=== PATIENT | female | born 1965 | race American Indian/Alaskan Native ===

== ENCOUNTER 2016-12-21 12:00 | Inpatient (IN) | payer MEDICARE ==
[2016-12-21 13:50] LABS: Basophils % (Auto) 0.4 % (0.0-1.8); Hematocrit 39.2 % (30.3-42.9); Hemoglobin 12.6 gm/dl (10.1-14.3); Mean Corpuscular HGB Conc 32 % (30-34); Mean Corpuscular Hemoglobin 30 pg (28-32); Mean Corpuscular Volume 94 fl (79-97); Platelet Count 403 K/mm3 (140-440); Red Blood Count 4.17 M/mm3 (3.65-5.03); Red Cell Distribution Width 17.4 % (13.2-15.2); White Blood Count 12.7 K/mm3 (4.5-11.0)
[2016-12-21 14:04] LABS: Albumin 4.2 g/dL (3.9-5); BUN/Creatinine Ratio 7.59; Bilirubin,Total 0.8 mg/dL (0.1-1.2); Calcium 9.5 mg/dL (8.4-10.2); Chloride 92.2 mmol/L (98-107); Potassium 4.1 mmol/L (3.6-5.0); Total Protein 8.4 g/dL (6.3-8.2)
[2016-12-21] MEDS ORDERED: NACL 0.9% 250ML 250 ML IV ONE (20:59)
[2016-12-21] MEDS ORDERED: REGLAN IV ONE (20:59)
[2016-12-21] MEDS ORDERED: ZOFRAN IV ONE (20:59)
[2016-12-21] MEDS ORDERED: DILAUDID IV ONE (20:59)
[2016-12-21] MEDS ORDERED: PEPCID IV ONE (20:59)
[2016-12-21] MEDS ORDERED: BENADRYL IV ONE (20:59)
--- NOTE | 2016-12-21 21:13 | Emergency Department Report ---
ED N/V/D HPI - General Chief complaint: Nausea/Vomiting/Diarrhea Stated complaint: LOW BACK PAIN/BP HIGH Time Seen by Provider: 12/21/16 20:46 Source: patient Mode of arrival: Ambulatory Limitations: No Limitations - History of Present Illness Initial comments: 51 yo female with a past medical history diabetes, hypertension, end-stage renal disease on dialysis and previous cholecystectomy and presents to the hospital complains of abdominal pain nausea, and vomiting 5 days. Patient reports that the symptoms are similar to previous episodes of gastroparesis. She was seen at a [facility] in [facility] on symptoms onset 4 days ago, was treated and released from the ED and had a repeat visit on day 3 and once again was treated in the ER and released. Patient's taken hydrocodone 10 mg, Reglan, Zofran, and Protonix without improvement in symptoms. Patient states she is unable to tolerate any of her oral medication. Pain is in the upper abdomen and lower back, sharp, rated 10/10 intensity, constant, worse with palpation. No alleviating factors. Patient does have urine output denies dysuria. Vomiting has turned into coffee ground emesis. No bowel movement 1 week. Patient moved to the [facility] 4 days ago from [facility]. She recently had her dialysis center change to a local clinic. She was due for dialysis there today (Sunday, , Sunday) but was unable to attend because she was too sick. 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 - Related Data Home Medications Medication Instructions Recorded Confirmed Last Taken Unobtainable 12/21/16 12/21/16 Unknown Allergies Allergy/AdvReac Type Severity Reaction Status Date / Time aspirin Allergy Hives Verified 12/21/16 20:49 ED Review of Systems ROS: Stated complaint: LOW BACK PAIN/BP HIGH Other details as noted in HPI Comment: All other systems reviewed and negative Other: Constitutional: No fevers chills Eyes: No eye pain visual changes ENT: No ear pain or throat pain Neck: Denies pain Respiratory: Denies cough wheezing shortness of breath Cardiovascular: Denies chest pain, palpitations, syncope GI: As per HPI : Denies dysuria Musculoskeletal: As per HPI Skin: Denies rash, lesions, erythema Neurologic: Denies headache, numbness, weakness Psychiatric: Denies suicidal ideation, hallucinations ED Past Medical Hx - Past Medical History Previous Medical History?: Yes Hx Hypertension: Yes Hx Diabetes: Yes Hx Renal Disease: Yes Additional medical history: spinal stenosis, Hemodialysis (Tues, Th, sat) - Surgical History Past Surgical History?: Yes Hx Cholecystectomy: Yes Additional Surgical History: 1990 - Social History Smoking Status: Never Smoker Substance Use Type: Prescribed - Medications Home Medications: Home Medications Medication Instructions Recorded Confirmed Last Taken Type Unobtainable 12/21/16 12/21/16 Unknown History ED Physical Exam - General Limitations: No Limitations - Other Other exam information: General: No limitations, patient is alert in no acute distress Head exam: Atraumatic, normocephalic Eyes exam: Normal appearance ENT: No exudate no exudate Neck exam: Normal inspection, full range of motion, no meningismus nontender Respiratory exam: Clear to auscultation bilateral, no wheezes, rales, crackles Cardiovascular: Normal rate and rhythm, normal heart sounds Abdomen: Soft, nondistended, generalized tenderness, with normal bowel sounds, no rebound, or guarding Extremity: Full range of motion normal inspection no deformity Back: Normal Inspection, full range of motion, lower back tenderness Neurologic: Alert, oriented x3, cranial nerves intact, no motor or sensory deficit Psychiatric: normal affect, normal mood Skin: Warm, dry, intact ED Course Vital Signs 12/21/16 12/21/16 12/21/16 13:04 20:50 21:55 Temperature 98.5 F Pulse Rate 108 H 97 H 93 H Respiratory 24 22 24 Rate Blood Pressure 181/113 Blood Pressure 128/80 127/79 [Right] O2 Sat by Pulse 100 100 99 Oximetry - Reevaluation(s) Reevaluation #1: 12/21/16 22:50 Patient treated with Dilaudid, pepcid, small bolus of normal saline, Reglan, Benadryl, and Zofran with mild improvement in pain and blood pressure. Will admit to the hospital for further treatment patient has repeatedly failed outpatient treatment this week ED Medical Decision Making - Lab Data Result diagrams: 12/21/16 13:25 12/21/16 13:25 Lab Results 12/21/16 12/21/16 12/21/16 Range/Units 13:20 13:25 13:25 WBC 12.7 H (4.5-11.0) K/mm3 RBC 4.17 (3.65-5.03) M/mm3 Hgb 12.6 (10.1-14.3) gm/dl Hct 39.2 (30.3-42.9) % MCV 94 (79-97) fl MCH 30 (28-32) pg MCHC 32 (30-34) % RDW 17.4 H (13.2-15.2) % Plt Count 403 (140-440) K/mm3 Lymph % (Auto) 9.6 L (13.4-35.0) % [place] % (Auto) 4.1 (0.0-7.3) % Eos % (Auto) 0.0 (0.0-4.3) % Baso % (Auto) 0.4 (0.0-1.8) % Lymph # 1.2 (1.2-5.4) K/mm3 [place]y # 0.5 (0.0-0.8) K/mm3 Eos # 0.0 (0.0-0.4) K/mm3 Baso # 0.1 (0.0-0.1) K/mm3 Seg Neutrophils % 85.9 H (40.0-70.0) % Seg Neutrophils # 10.9 H (1.8-7.7) K/mm3 Sodium 138 (137-145) mmol/L Potassium 4.1 (3.6-5.0) mmol/L Chloride 92.2 L (98-107) mmol/L Carbon Dioxide 21 L (22-30) mmol/L Anion Gap 29 mmol/L BUN 41 H (7-17) mg/dL Creatinine 5.4 H (0.7-1.2) mg/dL Estimated GFR 8 ml/min BUN/Creatinine Ratio 7.59 % Glucose 323 H (65-100) mg/dL POC Glucose 319 H (70-105) Calcium 9.5 (8.4-10.2) mg/dL Total Bilirubin 0.80 (0.1-1.2) mg/dL AST 19 (5-40) units/L ALT 8 (7-56) units/L Alkaline Phosphatase 73 (35-129) units/L Total Protein 8.4 H (6.3-8.2) g/dL Albumin 4.2 (3.9-5) g/dL Albumin/Globulin Ratio 1.0 % Lipase 10 L (13-60) units/L Urine Color (Yellow) Urine Turbidity (Clear) Urine pH (5.0-7.0) Ur Specific Dickens (1.003-1.030) Urine Protein (Negative) mg/dL Urine Glucose (UA) (Negative) mg/dL Urine Ketones (Negative) mg/dL Urine Blood (Negative) Urine Nitrite (Negative) Urine Bilirubin (Negative) Urine Urobilinogen (<2.0) mg/dL Ur Leukocyte Esterase (Negative) Urine WBC (Auto) (0.0-6.0) /HPF Urine RBC (Auto) (0.0-6.0) /HPF U Epithel Cells (Auto) (0-13.0) /HPF Urine HCG, Qual (Negative) 12/21/16 12/21/16 Range/Units 21:02 Unknown WBC (4.5-11.0) K/mm3 RBC (3.65-5.03) M/mm3 Hgb (10.1-14.3) gm/dl Hct (30.3-42.9) % MCV (79-97) fl MCH (28-32) pg MCHC (30-34) % RDW (13.2-15.2) % Plt Count (140-440) K/mm3 Lymph % (Auto) (13.4-35.0) % Ripley % (Auto) (0.0-7.3) % Eos % (Auto) (0.0-4.3) % Baso % (Auto) (0.0-1.8) % Lymph # (1.2-5.4) K/mm3 Ripley # (0.0-0.8) K/mm3 Eos # (0.0-0.4) K/mm3 Baso # (0.0-0.1) K/mm3 Seg Neutrophils % (40.0-70.0) % Seg Neutrophils # (1.8-7.7) K/mm3 Sodium (137-145) mmol/L Potassium (3.6-5.0) mmol/L Chloride (98-107) mmol/L Carbon Dioxide (22-30) mmol/L Anion Gap mmol/L BUN (7-17) mg/dL Creatinine (0.7-1.2) mg/dL Estimated GFR ml/min BUN/Creatinine Ratio % Glucose (65-100) mg/dL POC Glucose (70-105) Calcium (8.4-10.2) mg/dL Total Bilirubin (0.1-1.2) mg/dL AST (5-40) units/L ALT (7-56) units/L Alkaline Phosphatase (35-129) units/L Total Protein (6.3-8.2) g/dL Albumin (3.9-5) g/dL Albumin/Globulin Ratio % Lipase (13-60) units/L Urine Color Yellow (Yellow) Urine Turbidity Clear (Clear) Urine pH 6.0 (5.0-7.0) Ur Specific Dick[place] 1.010 (1.003-1.030) Urine Protein 100 mg/dl (Negative) mg/dL Urine Glucose (UA) >=500 (Negative) mg/dL Urine Ketones 20 (Negative) mg/dL Urine Blood Sm (Negative) Urine Nitrite Neg (Negative) Urine Bilirubin Neg (Negative) Urine Urobilinogen < 2.0 (<2.0) mg/dL Ur Leukocyte Esterase Neg (Negative) Urine WBC (Auto) 1.0 (0.0-6.0) /HPF Urine RBC (Auto) 6.0 (0.0-6.0) /HPF U Epithel Cells (Auto) 2.0 (0-13.0) /HPF Urine HCG, Qual Negative (Negative) - Radiology Data Radiology results: report reviewed CT abdomen and pelvis without contrast: No Acute Findings. Appendix normal. Moderate fecal debris thorough out colon May represent constipation. - Medical Decision Making Given patient's repeated failure of outpatient treatment will admit to the hospital overnight for further stabilization and further symptoms. Blood pressure improved with pain and nausea management. Patient is also due for dialysis and does not know the name of her special service representative. - Differential Diagnosis gastroparesis, gastroenteritis, [place], chronic pain, obstruction Critical Care Time: No Critical care attestation.: If time is entered above; I have spent that time in minutes in the direct care of this critically ill patient, excluding procedure time. ED Disposition Clinical Impression: Gastroparesis, ESRD (end stage renal disease) on dialysis, HTN (hypertension), Diabetes Disposition: OP ADMIT IP TO THIS HOSP Is pt being admited?: Yes Condition: Stable Time of Disposition: 22:53 (DR dunbar/hosp)
[2016-12-21 21:23] LABS: Bilirubin,Urine NEG (Negative); Blood,Urine SM (Negative); Ketones,Urine 20 mg/dL (Negative); Leukocyte Esterase,Urine NEG (Negative); Nitrite,Urine NEG (Negative); Urobilinogen,Urine < 2.0 mg/dL (<2.0)
--- NOTE | 2016-12-21 22:22 | Cat Scan Report ---
FINAL REPORT PROCEDURE: CT ABDOMEN PELVIS WO CON TECHNIQUE: Computerized axial tomography of the abdomen and pelvis was performed without intravenous contrast. This study is performed without intravascular contrast material and its sensitivity for abdominal and pelvic pathology, including neoplasms, inflammation, abscess, free fluid, thrombosis, arterial dissection and infarction, is reduced compared with a contrast enhanced study. HISTORY: abd pain, n,v hx of gastroparesis, esrd COMPARISON: No prior studies are available for comparison. FINDINGS: Visualized lower thorax: No significant abnormality. Liver: Normal size and attenuation. Spleen: Normal size and attenuation. Gallbladder and biliary system: The gallbladder is difficult to evaluate on this study. The gallbladder may be contracted. No dilatation of the biliary ductal system.. Pancreas: Normal. Adrenals: Normal. Kidneys: Normal. GI tract: No obstruction. No ileus or enteritis. The cecum, appendix and colon are normal. Moderate fecal debris throughout the colon including the rectum.. Lymph nodes and mesentery: Normal. Vasculature: Moderate atherosclerosis of the aorta and all branching vessels.. Bladder: Normal. Reproductive organs: The uterus is absent. No pelvic masses.. Peritoneum: No free fluid. Musculoskeletal structures: No significant abnormality. Other: None. IMPRESSION: There is no evidence of intestinal or urinary tract obstruction. No ileus or enteritis. The appendix is normal. Moderate fecal debris throughout the colon may represent constipation..
--- NOTE | 2016-12-21 23:47 | History and Physical Report ---
History of Present Illness Date of examination: 12/21/16 History of present illness: 51-year-old man with a history of end-stage renal disease on dialysis Sunday, , Sunday, diabetes, hypertension comes emergency room with complaints of multiple episodes of nausea vomiting, unable to tolerate oral intake 1 week. Patient states that she went to dialysis today and was unable to get dialyzed because of her persistent nausea vomiting. She was seen at [facility] for the nausea vomiting secondary to gastroparesis but was not admitted. Complaining of abdominal pain in the epigastric area, sharp, intermittent in nature, unable to say how long it lasts for, radiating around to the back, cannot identify exacerbating or relieving factors. Review Of Systems: Constitutional: no fever, chills, weight loss Ears, eyes, nose, mouth and throat: no nasal congestion, no nasal discharge, no sinus pressure, blurry vision, diplopia Neck: No neck pain or rigidity. Cardiovascular: chest pain, orthopnea, palpitations Respiratory: No shortness of breath, cough Gastrointestinal: hematochezia Genitourinary : no dysuria, frequency , hematuria Musculoskeletal: no joint swelling or muscle ache Integumentary: no rash, no pruritis Neurological: no parathesias, focal weakness Endocrine: no cold or heat intolerance, no polyuria or polydipsia Hematologic/Lymphatic: no easy bruising, no easy bleeding, no gland swelling Allergic/Immunologic: no urticaria, no angioedema. PAST MEDICAL HISTORY:end-stage renal disease on dialysis Sunday, , Sunday, diabetes, hypertension PAST SURGICAL HISTORY: AV fistula, cholecystectomy, FAMILY HISTORY: hypertension SOCIAL HISTORY: Denies alcohol, tobacco, drugs Medications and Allergies Allergies Allergy/AdvReac Type Severity Reaction Status Date / Time aspirin Allergy Hives Verified 12/21/16 20:49 Home Medications Medication Instructions Recorded Confirmed Last Taken Type Apixaban [Eliquis] 2.5 mg PO BID 12/22/16 12/22/16 12/20/16 History Clopidogrel Bisulfate [Plavix] 75 mg PO DAILY 12/22/16 12/22/16 1 Day Ago History Duloxetine HCl [Cymbalta] 30 mg PO DAILY 12/22/16 12/22/16 12/20/16 History Escitalopram [Lexapro] 10 mg PO DAILY 08/12/22/16 12/20/16 History Folic Acid/Multivit-Min/Lutein 1 tab PO QDAY 12/22/16 12/22/16 12/20/16 History [Therapeutic-M] Glimepiride [Amaryl] 4 mg PO BID 12/22/16 12/22/16 12/20/16 History HYDROcodone/APAP 10-325 [[place] 1 each PO Q6HR PRN 12/22/16 12/22/16 Unknown History 10/325] Linagliptin [Tradjenta] 10 mg PO DAILY 12/22/16 12/22/16 12/20/16 History Pantoprazole [Protonix TAB] 20 mg QDAY 12/22/16 12/22/16 12/20/16 History Promethazine [Phenergan TAB] 25 mg PO Q6HR PRN 12/22/16 12/22/16 1 Day Ago History Ropinirole HCl [rOPINIRole] 10 mg PO DAILY 12/22/16 12/22/16 12/20/16 History cloNIDine [Catapres] 0.2 mg PO BID 12/22/16 12/22/16 1 Day Ago History hydrALAZINE [Apresoline TAB] 100 mg PO TID 12/22/16 12/22/16 1 Day Ago History Exam - Constitutional Vitals: Temp Pulse Resp BP Pulse Ox 98.5 F 93 H 24 127/79 99 12/21/16 13:04 12/21/16 21:55 12/21/16 21:55 12/21/16 21:55 12/21/16 21:55 Results - Labs CBC & Chem 7: 12/21/16 13:25 12/21/16 13:25 Labs: Abnormal lab results 12/21/16 12/21/16 12/21/16 Range/Units 13:20 13:25 13:25 WBC 12.7 H (4.5-11.0) K/mm3 RDW 17.4 H (13.2-15.2) % Lymph % (Auto) 9.6 L (13.4-35.0) % Seg Neutrophils % 85.9 H (40.0-70.0) % Seg Neutrophils # 10.9 H (1.8-7.7) K/mm3 Chloride 92.2 L (98-107) mmol/L Carbon Dioxide 21 L (22-30) mmol/L BUN 41 H (7-17) mg/dL Creatinine 5.4 H (0.7-1.2) mg/dL Glucose 323 H (65-100) mg/dL POC Glucose 319 H (70-105) Total Protein 8.4 H (6.3-8.2) g/dL Lipase 10 L (13-60) units/L Assessment and Plan Assessment Acute on chronic gastroparesis End-stage renal disease needing dialysis Hypertension Diabetes Plan Start antibiotics, consult renal Check fingersticks and initiate insulin sliding scale Continue appropriate outpatient medications comes to drift prophylaxis
[2016-12-22] MEDS ORDERED: REGLAN IV PRN ×2 (00:07→00:27)
[2016-12-22] MEDS ORDERED: TYLENOL PO PRN (00:07)
[2016-12-22] MEDS ORDERED: DULCOLAX PR PRN (00:07)
[2016-12-22] MEDS: MORPHINE IV PRN ×3 (01:03→17:50)
[2016-12-22] MEDS: ZOFRAN IV PRN ×4 (01:04→21:55)
[2016-12-22 01:34] LABS: Creatine Kinase MB 1.6 ng/mL (0.0-4.0)
[2016-12-22 01:35] LABS: Creatine Kinase 113 units/L (30-135)
[2016-12-22 07:27] LABS: Creatine Kinase MB 1.5 ng/mL (0.0-4.0)
[2016-12-22 07:28] LABS: Creatine Kinase 83 units/L (30-135)
[2016-12-22] MEDS ORDERED: APRESOLINE IV ONE (09:00)
--- NOTE | 2016-12-22 09:39 | Consultation ---
History of Present Illness - Reason for Consult Consult date: 12/22/16 end stage renal disease Medications and Allergies Allergies Allergy/AdvReac Type Severity Reaction Status Date / Time aspirin Allergy Hives Verified 12/21/16 20:49 Home Medications Medication Instructions Recorded Confirmed Last Taken Type Apixaban [Eliquis] 2.5 mg PO BID 12/22/16 12/22/16 12/20/16 History Clopidogrel Bisulfate [Plavix] 75 mg PO DAILY 12/22/16 12/22/16 1 Day Ago History Duloxetine HCl [Cymbalta] 30 mg PO DAILY 12/22/16 12/22/16 12/20/16 History Escitalopram [Lexapro] 10 mg PO DAILY 12/22/16 12/22/16 12/20/16 History Folic Acid/Multivit-Min/Lutein 1 tab PO QDAY 12/22/16 12/22/16 12/20/16 History [Therapeutic-M] Glimepiride [Amaryl] 4 mg PO BID 12/22/16 12/22/16 12/20/16 History HYDROcodone/APAP 10-325 [[place] 1 each PO Q6HR PRN 12/22/16 12/22/16 Unknown History 10/325] Linagliptin [Tradjenta] 10 mg PO DAILY 12/22/16 12/22/16 12/20/16 History Pantoprazole [Protonix TAB] 20 mg QDAY 12/22/16 12/22/16 12/20/16 History Promethazine [Phenergan TAB] 25 mg PO Q6HR PRN 12/22/16 12/22/16 1 Day Ago History Ropinirole HCl [rOPINIRole] 10 mg PO DAILY 12/22/16 12/22/16 12/20/16 History cloNIDine [Catapres] 0.2 mg PO BID 12/22/16 12/22/16 1 Day Ago History hydrALAZINE [Apresoline TAB] 100 mg PO TID 12/22/16 12/22/16 1 Day Ago History Active Meds: Active Medications Acetaminophen (Tylenol) 650 mg PO Q4H PRN PRN Reason: Pain MILD(1-3)/Fever >100.5/SHERMAN Acetaminophen/Hydrocodone Bitart ([place] 10/325) 1 each PO Q6HR PRN PRN Reason: Pain Bisacodyl (Dulcolax) 10 mg UT QDAY PRN PRN Reason: Constipation unrelieved by MOM Clonidine HCl (Catapres) 0.2 mg PO BID [facility] Clopidogrel Bisulfate (Plavix) 75 mg PO DAILY SHARI Duloxetine HCl (Cymbalta) 30 mg PO DAILY [facility] Enoxaparin Sodium (Lovenox) 30 mg SUB-Q QDAY [facility] Escitalopram Oxalate (Lexapro) 10 mg PO DAILY SHARI Famotidine (Pepcid) 20 mg IV DAILY SH[facility]I Glimepiride (Amaryl) 4 mg PO BIDDIAB [facility] Hydralazine HCl (Apresoline) 100 mg PO TID SHARI Linagliptin (Tradjenta) 10 mg PO DAILY [facility] Metoclopramide HCl (Reglan) 5 mg IV Q6H PRN PRN Reason: Nausea And Vomiting Miscellaneous Medication (Ropinirole Hcl [Ropinirole]) 10 mg PO DAILY [facility] Morphine Sulfate (Morphine) 2 mg IV Q4H PRN PRN Reason: Pain, Moderate (4-6) Last Admin: 12/22/16 07:54 Dose: 2 mg Ondansetron HCl (Zofran) 4 mg IV Q4H PRN PRN Reason: N/V unrelieved by Reglan Last Admin: 12/22/16 07:54 Dose: 4 mg Promethazine HCl (Phenergan) 25 mg PO Q6HR PRN PRN Reason: Nausea Exam - Vital Signs Vital signs: Vital Signs Temp Pulse Resp BP Pulse Ox 98.5 F 108 H 24 181/113 100 12/21/16 13:04 12/21/16 13:04 12/21/16 13:04 12/21/16 13:04 12/21/16 13:04 Results - Lab Results 12/21/16 13:25 12/21/16 13:25 Most recent lab results Calcium 9.5 mg/dL (8.4-10.2) 12/21/16 13:25
[2016-12-22] MEDS ORDERED: ROPINIROLE HCL 10 MG PO SCH (10:00)
[2016-12-22] MEDS: AMARYL PO SCH ×2 (10:00→17:48)
[2016-12-22] MEDS ORDERED: PEPCID IV SCH (10:00)
[2016-12-22] MEDS ORDERED: LOVENOX SUB-Q SCH (10:00)
[2016-12-22] MEDS: PEPCID IV SCH (10:29)
[2016-12-22] MEDS: CATAPRES PO SCH ×2 (10:30→21:55)
[2016-12-22] MEDS ORDERED: NACL 0.9% 100 ML IV PRN (11:00)
[2016-12-22] MEDS ORDERED: PHENERGAN PO PRN (11:00)
[2016-12-22] MEDS ORDERED: NORCO 10/325 PO PRN (11:30)
[2016-12-22] MEDS: TRADJENTA PO SCH (11:52)
[2016-12-22] MEDS: CYMBALTA PO SCH (11:52)
[2016-12-22] MEDS: LEXAPRO PO SCH (11:52)
[2016-12-22] MEDS: PLAVIX PO SCH ×2 (11:53→17:49)
--- NOTE | 2016-12-22 13:46 | Progress Note ---
Assessment and Plan Assessment and plan: Abdominal pain, nausea and vomiting secondary to gastroparesis - Patient is on Reglan, pantoprazole - Patient shows evaluated by gastroenterology before End Stage Renal disease on hemodialysis - Patient recently moved from [facility] - she was scheduled to go to [facility] yesterday but she got sick and she was sent to the hospital - Nephrology was consulted and dialysis was ordered today DM2 with hyperglycemia -Continue home medication Hypertension - continue home medication DVT prophylaxis -Heparin Disposition - possible D/C tomorrow History Interval history: Patient was seen and evaluated this morning, she is still c/o abdominal pain but getting better. Hospitalist Physical - Physical exam Narrative exam: Not in cardiopulmonary distress. The patient appeared well nourished and normally developed. Vital signs as documented. Head exam is unremarkable. No scleral icterus . Neck is without jugular venous distension, thyromegaly, or carotid bruits. Lungs are clear to auscultation. Cardiac exam reveals regular rate and Rhythm. First and second heart sounds normal. No murmurs, rubs or gallops. Abdominal exam reveals abdominal tenderness but no rebound or guarding. Extremities are nonedematous and both femoral and pedal pulses are normal. [employer] AL[employer]ER: Alert and oriented 3. No focal weakness. - Constitutional Vitals: Temp Pulse Resp BP Pulse Ox 98.1 F 90 20 95/52 96 12/22/16 11:55 12/22/16 11:55 12/22/16 11:55 12/22/16 11:55 12/22/16 11:55 Results - Labs CBC & Chem 7: 12/21/16 13:25 12/21/16 13:25 Labs: Laboratory Last Values WBC 12.7 K/mm3 (4.5-11.0) H 12/21/16 13:25 RBC 4.17 M/mm3 (3.65-5.03) 12/21/16 13:25 Hgb 12.6 gm/dl (10.1-14.3) 12/21/16 13:25 Hct 39.2 % (30.3-42.9) 12/21/16 13:25 MCV 94 fl (79-97) 12/21/16 13:25 MCH 30 pg (28-32) 12/21/16 13:25 MCHC 32 % (30-34) 12/21/16 13:25 RDW 17.4 % (13.2-15.2) H 12/21/16 13:25 Plt Count 403 K/mm3 (140-440) 12/21/16 13:25 Lymph % (Auto) 9.6 % (13.4-35.0) L 12/21/16 13:25 Avery % (Auto) 4.1 % (0.0-7.3) 12/21/16 13:25 Eos % (Auto) 0.0 % (0.0-4.3) 12/21/16 13:25 Baso % (Auto) 0.4 % (0.0-1.8) 12/21/16 13:25 Lymph # 1.2 K/mm3 (1.2-5.4) 12/21/16 13:25 Avery # 0.5 K/mm3 (0.0-0.8) 12/21/16 13:25 Eos # 0.0 K/mm3 (0.0-0.4) 12/21/16 13:25 Baso # 0.1 K/mm3 (0.0-0.1) 12/21/16 13:25 Seg Neutrophils % 85.9 % (40.0-70.0) H 12/21/16 13:25 Seg Neutrophils # 10.9 K/mm3 (1.8-7.7) H 12/21/16 13:25 Sodium 138 mmol/L (137-145) 12/21/16 13:25 Potassium 4.1 mmol/L (3.6-5.0) 12/21/16 13:25 Chloride 92.2 mmol/L (98-107) L 12/21/16 13:25 Carbon Dioxide 21 mmol/L (22-30) L 12/21/16 13:25 Anion Gap 29 mmol/L 12/21/16 13:25 BUN 41 mg/dL (7-17) H 12/21/16 13:25 Creatinine 5.4 mg/dL (0.7-1.2) H 12/21/16 13:25 Estimated GFR 8 ml/min 12/21/16 13:25 BUN/Creatinine Ratio 7.59 % 12/21/16 13:25 Glucose 323 mg/dL (65-100) H 12/21/16 13:25 POC Glucose 197 (70-105) H 12/21/16 21:41 Calcium 9.5 mg/dL (8.4-10.2) 12/21/16 13:25 Total Bilirubin 0.80 mg/dL (0.1-1.2) 12/21/16 13:25 AST 19 units/L (5-40) 12/21/16 13:25 ALT 8 units/L (7-56) 12/21/16 13:25 Alkaline Phosphatase 73 units/L (35-129) 12/21/16 13:25 Total Creatine Kinase 83 units/L (30-135) 12/22/16 06:47 CK-MB (CK-2) 1.5 ng/mL (0.0-4.0) 12/22/16 06:47 CK-MB (CK-2) Rel Index 1.8 (0-4) 12/22/16 06:47 Troponin T < 0.010 ng/mL (0.00-0.029) 12/22/16 06:47 Total Protein 8.4 g/dL (6.3-8.2) H 12/21/16 13:25 Albumin 4.2 g/dL (3.9-5) 12/21/16 13:25 Albumin/Globulin Ratio 1.0 % 12/21/16 13:25 Lipase 10 units/L (13-60) L 12/21/16 13:25 Urine Color Yellow (Yellow) 12/21/16 Unknown Urine Turbidity Clear (Clear) 12/21/16 Unknown Urine pH 6.0 (5.0-7.0) 12/21/16 Unknown Ur Specific [place] 1.010 (1.003-1.030) 12/21/16 Unknown Urine Protein 100 mg/dl mg/dL (Negative) 12/21/16 Unknown Urine Glucose (UA) >=500 mg/dL (Negative) 12/21/16 Unknown Urine Ketones 20 mg/dL (Negative) 12/21/16 Unknown Urine Blood Sm (Negative) 12/21/16 Unknown Urine Nitrite Neg (Negative) 12/21/16 Unknown Urine Bilirubin Neg (Negative) 12/21/16 Unknown Urine Urobilinogen < 2.0 mg/dL (<2.0) 12/21/16 Unknown Ur Leukocyte Esterase Neg (Negative) 12/21/16 Unknown Urine WBC (Auto) 1.0 /HPF (0.0-6.0) 12/21/16 Unknown Urine RBC (Auto) 6.0 /HPF (0.0-6.0) 12/21/16 Unknown U Epithel Cells (Auto) 2.0 /HPF (0-13.0) 12/21/16 Unknown Urine HCG, Qual Negative (Negative) 12/21/16 21:02
[2016-12-22] MEDS: APRESOLINE PO SCH ×2 (14:24→21:55)
[2016-12-22] MEDS: PROTONIX PO SCH (14:25)
[2016-12-22] MEDS ORDERED: HEPARIN IV PRN (14:52)
[2016-12-22] MEDS ORDERED: NACL 0.9 (PRIMING MACHINE ONLY DIALYSIS) MC ONE (15:10)
[2016-12-22] MEDS ORDERED: HEPARIN 10,000 UNITS/10 ML ONE (15:11)
--- NOTE | 2016-12-22 17:51 | Consultation ---
History of Present Illness - History of Present Illness Thank you for the consultation Patient is currently being followed by our group at [facility] Patient was evaluated at 1:30 in the afternoon was also seen and supervised on hemodialysis Assessment and plan End-stage renal disease patient is currently on maintenance hemodialysis on Sunday and Sunday schedule Patient likely will require 2 hours of additional treatment tomorrow She does currently have a functioning fistula in the right arm but in my opinion does not appears to be fully matured Current dialysis access still appears to be a central venous catheter in her right upper chest which has been working well Anemia and end-stage renal disease to monitor and follow Secondary hyperparathyroidism and monitor phosphorus and PTH level End-stage renal disease related to dietary counseling and education with the lifestyle changes were discussed with patient Currently being treated for gastroparesis flare which she does get off and on, patient needs to follow gastroparesis diet We'll continue to follow and make recommendation from renal standpoint History of presenting illness: Patient is a pleasant 51-year-old -[place] female who is currently started dialysis at [facility] under our group. Patient has had a flareup nausea vomiting and gastroparesis which she occasionally does and has presented to the hospital for dialysis need. Patient was seen by another pattern setter by mistake. I was consulted for management of end-stage renal disease. Patient currently does have a working access in her right arm which has been cannulated a few time with success. She currently does not have any complaints of nausea vomiting, which is improving. No complaints of any fevers chills patient already takes off about 2 L of fluid during dialysis. Patient wants to go back to [facility] under our care for her dialysis and she has no plans to change her pattern setter Past medical history is significant for: End-stage renal disease currently in maintenance of her dialysis Anemia and end-stage renal disease Secondary hyperparathyroidism Gastroparesis Current allergies: Aspirin Home medication present medications: Reviewed Social history: Denies any history of alcohol drug or tobacco abuse Family history: Noncontributory for renal lipid disorder Review of system positive for flareup of diabetic gastroparesis nausea vomiting which is currently much better Other review of systems were negative Physical examination Vitals: Reviewed from this admission General: No acute distress HEENT: Oral mucosa moist no uremic order mild pallor no icterus Neck: No thyromegaly nodular mass or JVD noted Chest: Clear to auscultation no rales or wheezes Heart: Regular rhythm S1-S2 heard no S3-S4 Abdomen: Nontender no organomegaly no masses no renal bruit no suprapubic masses noted Extremities: Mild edema No peripheral cyanosis dry skin pulses palpable, has a working fistula in her right upper arm Endocrine: No thyromegaly noted Psych; no agitation or aggression noted Back: Nontender thoracolumbar spine Musculoskeletal: No joint effusion noted Neurological: Alert awake follows commands higher function including speech memory thought cognition within normal limits Labs and x-rays: All were reviewed from this admission on chart today Medications and Allergies Allergies Allergy/AdvReac Type Severity Reaction Status Date / Time aspirin Allergy Hives Verified 12/21/16 20:49 Home Medications Medication Instructions Recorded Confirmed Last Taken Type Apixaban [Eliquis] 2.5 mg PO BID 12/22/16 12/22/16 12/20/16 History Clopidogrel Bisulfate [Plavix] 75 mg PO DAILY 12/22/16 12/22/16 1 Day Ago History Duloxetine HCl [Cymbalta] 30 mg PO DAILY 12/22/16 12/22/16 12/20/16 History Escitalopram [Lexapro] 10 mg PO DAILY 12/22/16 12/22/16 12/20/16 History Folic Acid/Multivit-Min/Lutein 1 tab PO QDAY 12/22/16 12/22/16 12/20/16 History [Therapeutic-M] Glimepiride [Amaryl] 4 mg PO BID 12/22/16 12/22/16 12/20/16 History HYDROcodone/APAP 10-325 [[place] 1 each PO Q6HR PRN 12/22/16 12/22/16 Unknown History 10-325 mg TAB] Linagliptin [Tradjenta] 10 mg PO DAILY 12/22/16 12/22/16 12/20/16 History Pantoprazole [Protonix TAB] 20 mg QDAY 12/22/16 12/22/16 12/20/16 History Promethazine [Phenergan TAB] 25 mg PO Q6HR PRN 12/22/16 12/22/16 1 Day Ago History Ropinirole HCl [rOPINIRole] 10 mg PO DAILY 12/22/16 12/22/16 12/20/16 History cloNIDine [Catapres] 0.2 mg PO BID 12/22/16 12/22/16 1 Day Ago History hydrALAZINE [Apresoline TAB] 100 mg PO TID 12/22/16 12/22/16 1 Day Ago History Metoclopramide HCl [Reglan TAB] 5 mg PO Q6H PRN #30 tablet 12/23/16 Unknown Rx Active Meds: Active Medications Acetaminophen (Tylenol) 650 mg PO Q4H PRN PRN Reason: Pain MILD(1-3)/Fever >100.5/SHERMAN Acetaminophen/Hydrocodone Bitart ([place] 10/325) 1 each PO Q6H PRN PRN Reason: Pain Bisacodyl (Dulcolax) 10 mg [place] QDAY PRN PRN Reason: Constipation unrelieved by MOM Clonidine HCl (Catapres) 0.2 mg PO BID [facility] Last Admin: 12/22/16 10:30 Dose: 0.2 mg Clopidogrel Bisulfate (Plavix) 75 mg PO DAILY [facility] Last Admin: 12/22/16 17:49 Dose: 75 mg Duloxetine HCl (Cymbalta) 30 mg PO DAILY [facility] Last Admin: 12/22/16 11:52 Dose: Not Given Escitalopram Oxalate (Lexapro) 10 mg PO DAILY [facility] Last Admin: 12/22/16 11:52 Dose: Not Given Famotidine (Pepcid) 20 mg IV DAILY [facility] Last Admin: 12/22/16 10:29 Dose: 20 mg Glimepiride (Amaryl) 4 mg PO BIDDIAB [facility] Last Admin: 12/22/16 17:48 Dose: 4 mg Heparin Sodium (Porcine) (Heparin) 5,000 unit SUB-Q Q8HR [facility] Heparin Sodium (Porcine) (Heparin) 5,000 unit IV [place]LEY PRN PRN Reason: LINE FLUSH Hydralazine HCl (Apresoline) 100 mg PO TID [facility] Last Admin: 12/22/16 14:24 Dose: Not Given Sodium Chloride (Nacl 0.9%) 100 mls @ 999 mls/hr IV PRESLEY PRN PRN Reason: Hypotension Linagliptin (Tradjenta) 10 mg PO QDDIAB [facility] Last Admin: 12/22/16 11:52 Dose: Not Given Metoclopramide HCl (Reglan) 5 mg IV Q6H PRN PRN Reason: Nausea And Vomiting Morphine Sulfate (Morphine) 2 mg IV Q4H PRN PRN Reason: Pain, Moderate (4-6) Last Admin: 12/22/16 07:54 Dose: 2 mg Ondansetron HCl (Zofran) 4 mg IV Q4H PRN PRN Reason: N/V unrelieved by Ariana Last Admin: 12/22/16 15:35 Dose: 4 mg Pantoprazole Sodium (Protonix) 20 mg PO QDAY [facility] Last Admin: 12/22/16 14:25 Dose: Not Given Promethazine HCl (Phenergan) 25 mg PO Q6H PRN PRN Reason: Nausea Ropinirole HCl (Requip) 2.5 mg PO QHS [facility] Exam - Vital Signs Vital signs: Vital Signs Temp Pulse Resp BP Pulse Ox 98.5 F 108 H 24 181/113 100 12/21/16 13:04 12/21/16 13:04 12/21/16 13:04 12/21/16 13:04 12/21/16 13:04 Results - Lab Results 12/23/16 06:15 12/21/16 13:25 Most recent lab results Calcium 9.5 mg/dL (8.4-10.2) 12/21/16 13:25
[2016-12-22] MEDS: HEPARIN SUB-Q SCH (21:56)
[2016-12-22] MEDS ORDERED: REQUIP PO SCH (22:00)
[2016-12-23] MEDS: MORPHINE IV PRN ×2 (00:37→06:47)
[2016-12-23 06:34] LABS: Basophils % (Auto) 0.9 % (0.0-1.8); Eosinophils % (Auto) 2.3 % (0.0-4.3); Hematocrit 31.6 % (30.3-42.9); Hemoglobin 10.4 gm/dl (10.1-14.3); Mean Corpuscular HGB Conc 33 % (30-34); Mean Corpuscular Hemoglobin 31 pg (28-32); Mean Corpuscular Volume 94 fl (79-97); Platelet Count 303 K/mm3 (140-440); Red Blood Count 3.35 M/mm3 (3.65-5.03); Red Cell Distribution Width 16.7 % (13.2-15.2); White Blood Count 7.9 K/mm3 (4.5-11.0)
[2016-12-23] MEDS: ZOFRAN IV PRN (06:47)
[2016-12-23] MEDS: HEPARIN SUB-Q SCH ×2 (06:47→14:23)
[2016-12-23] MEDS ORDERED: NACL 0.9% 100 ML IV PRN (08:31)
[2016-12-23] MEDS: APRESOLINE PO SCH ×3 (08:52→14:03)
[2016-12-23] MEDS: AMARYL PO SCH (08:52)
[2016-12-23] MEDS: TRADJENTA PO SCH (08:53)
[2016-12-23] MEDS: CYMBALTA PO SCH (09:00)
[2016-12-23] MEDS: PROTONIX PO SCH (09:00)
[2016-12-23] MEDS: PEPCID IV SCH (09:00)
[2016-12-23] MEDS: LEXAPRO PO SCH (09:00)
[2016-12-23] MEDS: PLAVIX PO SCH (09:00)
[2016-12-23] MEDS: CATAPRES PO SCH (09:03)
--- NOTE | 2016-12-23 10:19 | Discharge Summary ---
Providers - Providers Date of Admission: 12/21/16 23:47 Date of discharge: 12/23/16 Attending physician: KEYA WEST MD 12/22/16 09:27 Consult to Physician [CONS] Routine Consulting Provider: MIO TREVIZO Reason For Exam: ESRD on HD Place consult to:: Dr. Trevizo Notified:: Francisca FLORES Phone number called:: Was contact made?: Yes If yes, spoke with:: Leandra-Office Time called:: 09:32 Primary care physician: ANITA REYNOSO MD Hospitalization Reason for admission: end-stage renal disease on hemodialysis, gastroparesis Condition: Stable Hospital course: Admission H/P 51-year-old man with a history of end-stage renal disease on dialysis Sunday, , Sunday, diabetes, hypertension comes emergency room with complaints of multiple episodes of nausea vomiting, unable to tolerate oral intake 1 week. Patient states that she went to dialysis today and was unable to get dialyzed because of her persistent nausea vomiting. She was seen at [facility] for the nausea vomiting secondary to gastroparesis but was not admitted. Complaining of abdominal pain in the epigastric area, sharp, intermittent in nature, unable to say how long it lasts for, radiating around to the back, cannot identify exacerbating or relieving factors. Patient was admitted to the floor and nephrology consulted and resumed her hemodialysis. Gastroparesis was managed symptomatically and getting better. patient was scheduled to continue her HD at [facility] [place] and was discharged home in a stable condition. Patients medications were reviewed and updated at the time of discharge. Disposition: - TO HOME OR SELFCARE Time spent for discharge: 31 minutes - Discharge Diagnoses (1) Diabetes Status: Acute Qualifiers: Diabetes mellitus type: D Diabetes mellitus complication status: D Diabetes mellitus complication detail: D Diabetic retinopathy severity: D Proliferative retinopathy type: P Diabetes mellitus macular edema: D Diabetes mellitus intermediate insulin use: D Laterality: L Chronic kidney disease stage: C (2) ESRD (end stage renal disease) on dialysis Status: Acute (3) Gastroparesis Status: Acute (4) HTN (hypertension) Status: Acute Qualifiers: Hypertension type: H Core Measure Documentation - Palliative Care Palliative Care/ Comfort Measures: Not Applicable - Core Measures Any of the following diagnoses?: none Exam - Physical Exam Narrative exam: Not in cardiopulmonary distress. The patient appeared well nourished and normally developed. Vital signs as documented. Head exam is unremarkable. No scleral icterus . Neck is without jugular venous distension, thyromegaly, or carotid bruits. Lungs are clear to auscultation. Cardiac exam reveals regular rate and Rhythm. First and second heart sounds normal. No murmurs, rubs or gallops. Abdominal exam reveals no abdominal tenderness, guarding or rigidity. Extremities are nonedematous and both femoral and pedal pulses are normal. 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 No focal weakness. - Constitutional Vitals: Temp Pulse Resp BP Pulse Ox 98.2 F 81 81 H 123/69 98 12/23/16 08:34 12/23/16 08:34 12/23/16 08:34 12/23/16 08:34 12/23/16 08:34 Plan Activity: no restrictions Weight Bearing Status: Full Weight Bearing Diet: low cholesterol, low salt, diabetic, renal Follow up with: ANITA REYNOSO MD [Primary Care Provider] - 7 Days Prescriptions: Metoclopramide HCl [Reglan TAB] 5 mg PO Q6H PRN #30 tablet PRN Reason: Pain
[2016-12-23] MEDS ORDERED: NACL 0.9 (PRIMING MACHINE ONLY DIALYSIS) MC ONE ×2 (11:24→12:27)
--- NOTE | 2016-12-23 11:30 | Progress Note ---
Subjective Interval history: Patient was seen today for follow-up overall she's feeling much better dialysis was well tolerated yesterday Patient currently does have a fistula in her right arm which has not fully matured She was also seen in supervised on hemodialysis tolerating well no compressive any nausea vomiting Occasionally does get flareup of gastroparesis Vitals labs intake output medications were reviewed HEENT: Oral mucosa moist no uremic order Neck: Supple no JVD Chest: Clear to auscultation Heart: Regular rate and rhythm S1-S2 heard Abdomen: Soft nontender Extremity: Good functioning fistula in the right arm has good thrill and bruit but not fully matured Neurological: Alert awake oriented 4 Assessment and plan End-stage renal disease patient is tolerating hemodialysis treatment well currently her normal days are Sunday she is receiving a short treatment today I did come to see in supervised on hemodialysis as well Did educate her length about rule out diet and lifestyle changes she should eat fresh and fresh frozen possibly avoid processed food in general Hypertension goal systolic blood pressure of under 150 was discussed with patient to monitor follow and take medications Educated about fistula care exercises to matured fistula which can be shortly use I believe in next 2-3 weeks depending on how thoroughly matures Gastroparesis flare patient was advised to follow gastroparesis diet optimally control her diabetes and exercise3 Overall she's stable from renal standpoint and can return back to dialysis clinic at [place] starting Sunday Already related questions were answered to the patient Objective - Vital Signs Vital signs: Vital Signs - 12hr 12/23/16 12/23/16 12/23/16 00:00 00:37 04:00 Temperature 98.2 F 97.8 F Pulse Rate 78 78 Respiratory 18 18 18 Rate Respiratory Rate [Bilateral Lateral Chest] Blood Pressure 104/71 94/53 O2 Sat by Pulse 97 96 Oximetry 12/23/16 12/23/16 12/23/16 06:47 08:03 08:34 Temperature 98.2 F Pulse Rate 81 Respiratory 18 81 H Rate Respiratory 20 Rate [Bilateral Lateral Chest] Blood Pressure 123/69 O2 Sat by Pulse 98 Oximetry 12/23/16 12/23/16 11:00 11:15 Temperature 98.1 F Pulse Rate 85 81 Respiratory 18 Rate Respiratory Rate [Bilateral Lateral Chest] Blood Pressure 128/70 138/77 O2 Sat by Pulse Oximetry - Lab 12/23/16 06:15 12/21/16 13:25 Most recent lab results Calcium 9.5 mg/dL (8.4-10.2) 12/21/16 13:25
[2016-12-23 14:04] VITALS: BP 138/78
== END 2016-12-23 15:28 | disposition home or self-care (01) | DRG 73 ==
LOC: ED 12:00 → 4A 23:47
PROVIDERS: ADMIT Internal Medicine; ATTEND Internal Medicine
PROC: 5A1D60Z (ICD-10-PCS; principal; 2016-12-22)
DX: E11.43 Type 2 diabetes mellitus with diabetic autonomic (poly)neuropathy (principal); N18.6 End stage renal disease; I12.0 Hypertensive chronic kidney disease with stage 5 chronic kidney disease or end stage renal disease; K31.84 Gastroparesis; E11.65 Type 2 diabetes mellitus with hyperglycemia; E11.22 Type 2 diabetes mellitus with diabetic chronic kidney disease; D64.9 Anemia, unspecified; M48.00 Spinal stenosis, site unspecified; Z90.49 Acquired absence of other specified parts of digestive tract; Z88.6 Allergy status to analgesic agent; Z99.2 Dependence on renal dialysis; Z82.49 Family history of ischemic heart disease and other diseases of the circulatory system; Z79.02 Long term (current) use of antithrombotics/antiplatelets; Z79.01 Long term (current) use of anticoagulants; Z79.899 Other long term (current) drug therapy
CPT/HCPCS: 36415; 74176; 80053; 81001; 81025; 82550; 82553; 82962; 83690; 84484; 85025; J0360; J1170; J1200; J1644; J1650; J1815; J2270; J2405; J2765; J7030; J7050

== ENCOUNTER 2017-01-01 21:28 | Emergency (ER) | payer MEDICARE ==
[2017-01-02 00:52] LABS: Basophils % (Auto) 0.4 % (0.0-1.8); Eosinophils % (Auto) 0.6 % (0.0-4.3); Hematocrit 38.1 % (30.3-42.9); Hemoglobin 12.3 gm/dl (10.1-14.3); Mean Corpuscular HGB Conc 32 % (30-34); Mean Corpuscular Hemoglobin 30 pg (28-32); Mean Corpuscular Volume 93 fl (79-97); Platelet Count 432 K/mm3 (140-440); Red Cell Distribution Width 15.5 % (13.2-15.2); White Blood Count 11.9 K/mm3 (4.5-11.0)
[2017-01-02 01:07] LABS: Albumin 3.9 g/dL (3.9-5); Albumin/Globulin Ratio 0.9 %; BUN/Creatinine Ratio 5.5; Bilirubin,Total 0.7 mg/dL (0.1-1.2); Calcium 9.9 mg/dL (8.4-10.2); Potassium 3.6 mmol/L (3.6-5.0); Total Protein 8.4 g/dL (6.3-8.2)
[2017-01-02] MEDS ORDERED: ZOFRAN IV ONE (08:29)
[2017-01-02] MEDS ORDERED: MORPHINE IV ONE (08:29)
[2017-01-02] MEDS ORDERED: REGLAN IV ONE (08:30)
[2017-01-02] MEDS ORDERED: APRESOLINE IV ONE (08:33)
--- NOTE | 2017-01-02 08:33 | Emergency Department Report ---
HPI - General Chief Complaint: Abdominal Pain Time Seen by Provider: 01/02/17 08:29 - HPI HPI: PATIENT IS HERE WITH ABDOMINAL PAIN, NAUSEA, VOMITING, H/O GASTROPARESIS, FEELS LIKE PREVIOUS EPISODES OF GASTROPARESIS. PATIENT WITH ESRD ON DIALYSIS, T,,S, STATES SHE HAS BEEN COMPLIANT WITH HER DIALYSIS SCHEDULE. NO FEVER, NO DYSURIA. ED Past Medical Hx - Past Medical History Previous Medical History?: Yes Hx Hypertension: Yes Hx Congestive Heart Failure: No Hx Diabetes: Yes Hx Deep Vein Thrombosis: Yes Hx Renal Disease: Yes Hx Asthma: No Hx COPD: No Additional medical history: spinal stenosis, Hemodialysis (, , sun) - Surgical History Past Surgical History?: Yes Hx Cholecystectomy: Yes Additional Surgical History: 1990 - Social History Smoking Status: Never Smoker Substance Use Type: None - Medications Home Medications: Home Medications Medication Instructions Recorded Confirmed Last Taken Type Apixaban [Eliquis] 2.5 mg PO BID 12/22/16 12/22/16 12/20/16 History Clopidogrel Bisulfate [Plavix] 75 mg PO DAILY 12/22/16 12/22/16 1 Day Ago History Duloxetine HCl [Cymbalta] 30 mg PO DAILY 12/22/16 12/22/16 12/20/16 History Escitalopram [Lexapro] 10 mg PO DAILY 12/22/16 12/22/16 12/20/16 History Folic Acid/Multivit-Min/Lutein 1 tab PO QDAY 12/22/16 12/22/16 12/20/16 History [Therapeutic-M] Glimepiride [Amaryl] 4 mg PO BID 12/22/16 12/22/16 12/20/16 History HYDROcodone/APAP 10-325 [[place] 1 each PO Q6HR PRN 12/22/16 12/22/16 Unknown History 10-325 mg TAB] Linagliptin [Tradjenta] 10 mg PO DAILY 12/22/16 12/22/16 12/20/16 History Pantoprazole [Protonix TAB] 20 mg QDAY 12/22/16 12/22/16 12/20/16 History Ropinirole HCl [rOPINIRole] 10 mg PO DAILY 12/22/16 12/22/16 12/20/16 History cloNIDine [Catapres] 0.2 mg PO BID 12/22/16 12/22/16 1 Day Ago History hydrALAZINE [Apresoline TAB] 100 mg PO TID 12/22/16 12/22/16 1 Day Ago History Metoclopramide HCl [Reglan TAB] 5 mg PO Q6H PRN #30 tablet 12/23/16 Unknown Rx Promethazine [Phenergan TAB] 25 mg PO Q6HR PRN #20 tablet 01/02/17 Unknown Rx ED Review of Systems ROS: Stated complaint: LOWER BACK PAIN,VOMITING,HPB Other details as noted in HPI Comment: All other systems reviewed and negative Cardiovascular: as per HPI Endocrine: no symptoms reported Gastrointestinal: abdominal pain, nausea, vomiting Physical Exam - Physical Exam Vital Signs: Vital Signs 01/01/17 01/02/17 22:30 04:57 Temperature 98.9 F 98.4 F Pulse Rate 105 H 106 H Respiratory 20 Rate Blood Pressure 131/83 141/97 O2 Sat by Pulse 99 Oximetry Physical Exam: - General Limitations: No Limitations General appearance: alert, in no apparent distress - Head Head exam: Present: atraumatic, normocephalic - Eye Eye exam: Present: normal appearance - ENT ENT exam: Present: mucous membranes moist - Neck Neck exam: Present: normal inspection - Respiratory Respiratory exam: Present: normal lung sounds bilaterally. Absent: respiratory distress - Cardiovascular Cardiovascular Exam: Present: regular rate, normal rhythm. Absent: systolic murmur, diastolic murmur, rubs, gallop - GI/Abdominal GI/Abdominal exam: Present: soft, normal bowel sounds - Extremities Exam Extremities exam: Present: normal inspection - Back Exam Back exam: Present: normal inspection - Neurological Exam Neurological exam: Present: alert, oriented X3, CN II-XII intact - Psychiatric Psychiatric exam: Present:normal affect - Skin Skin exam: Present: warm, dry, intact, normal color. Absent: rash ED Course Vital Signs 01/01/17 01/02/17 22:30 04:57 Temperature 98.9 F 98.4 F Pulse Rate 105 H 106 H Respiratory 20 Rate Blood Pressure 131/83 141/97 O2 Sat by Pulse 99 Oximetry ED Medical Decision Making - Lab Data Result diagrams: 01/02/17 00:24 01/02/17 00:24 Critical care attestation.: If time is entered above; I have spent that time in minutes in the direct care of this critically ill patient, excluding procedure time. ED Disposition Clinical Impression: Gastroparesis Disposition: DC-01 TO HOME OR SELFCARE Is pt being admited?: No Does the pt Need Aspirin: No Condition: Stable Instructions: Abdominal Pain (ED) Prescriptions: Promethazine [Phenergan TAB] 25 mg PO Q6HR PRN #20 tablet PRN Reason: Nausea Referrals: ANITA REYNOSO MD [Primary Care Provider] - 3-5 Days
[2017-01-02 09:00] VITALS: BP 162/92
== END 2017-01-02 09:23 | disposition home or self-care (01) ==
LOC: ED 21:28
DX: E11.43 Type 2 diabetes mellitus with diabetic autonomic (poly)neuropathy (principal); K31.84 Gastroparesis; I12.0 Hypertensive chronic kidney disease with stage 5 chronic kidney disease or end stage renal disease; N18.6 End stage renal disease; Z99.2 Dependence on renal dialysis; Z86.718 Personal history of other venous thrombosis and embolism
CPT/HCPCS: 36415; 80048; 80053; 83690; 85025; 96374; 96375; 99283; J2270; J2405; J2765; J0360

== ENCOUNTER 2019-01-10 02:24 | Emergency (ER) | payer MEDICARE ==
[2019-01-10 02:51] VITALS: BP 190/94
[2019-01-10] MEDS ORDERED: MORPHINE IV ONE (04:31)
[2019-01-10] MEDS ORDERED: ZOFRAN IV ONE (04:31)
[2019-01-10] MEDS ORDERED: NACL 0.9% 1000 ML 1,000 ML IV ONE (04:31)
[2019-01-10] MEDS ORDERED: PEPCID IV ONE (04:32)
[2019-01-10 06:01] LABS: Albumin 4.5 g/dL (3.9-5); Calcium 11.1 mg/dL (8.4-10.2)
[2019-01-10 06:37] LABS: Basophils % (Auto) 0.4 % (0.0-1.8); Eosinophils % (Auto) 0.3 % (0.0-4.3); Hematocrit 39.4 % (30.3-42.9); Hemoglobin 13.1 gm/dl (10.1-14.3); Lymphocytes # (Auto) 0.7 K/mm3 (1.2-5.4); Lymphocytes % (Auto) 6.1 % (13.4-35.0); Mean Corpuscular HGB Conc 33 % (30-34); Mean Corpuscular Volume 93 fl (79-97); Monocytes # (Auto) 1.1 K/mm3 (0.0-0.8); Monocytes % (Auto) 9.8 % (0.0-7.3); Platelet Count 351 K/mm3 (140-440); Red Blood Count 4.25 M/mm3 (3.65-5.03); Red Cell Distribution Width 17.6 % (13.2-15.2)
== END 2019-01-10 09:18 | disposition left against medical advice (07) ==
LOC: ED 02:24
DX: R10.9 Unspecified abdominal pain (principal); R11.2 Nausea with vomiting, unspecified; Z53.21 Procedure and treatment not carried out due to patient leaving prior to being seen by health care provider
CPT/HCPCS: 36415; 80053; 83690; 85025

== ENCOUNTER 2021-06-12 21:47 | Inpatient (IN) | payer MEDICARE ==
[2021-06-12] MEDS ORDERED: SODIUM CHLORIDE 0.9% 500 ML 500 ML IV ONE (21:55)
--- NOTE | 2021-06-12 22:00 | Emergency Department Report ---
ED General Adult HPI - General Stated complaint: HIGH BLOOD SUGAR, BRADICARDIC, COLD Time Seen by Provider: 06/12/21 21:51 Source: patient, old records reviewed Mode of arrival: Ambulatory Limitations: Altered Mental Status - History of Present Illness Initial comments: Chief complaint: Shortness of breath, nausea, altered mental status HPI: This is a 55-year-old female with history of end-stage renal disease on hemodialysis Sunday, diabetes mellitus, hypertension, DVT, gastroparesis who presents via EMS for altered mental status, hyperglycemia, bradycardia. Family members called EMS for shortness of breath. Patient complains of nausea. Patient is slow to respond slightly altered. She is very cold to touch. I spoke with soledad Song per phone. Patient became sick on Sunday. She had vomiting attributed to gastroparesis. Daughter noticed lethargy and slurred speech. Daughter felt that her sugar was low. Daughter gave her table sugar. Patient states that her industrial controller is Dr. Reis. She missed dialysis on yesterday because of nausea/vomiting. [facility]. -: Gradual, days(s) (2 days of illness) Consistency: constant Improves with: none Worsens with: none Associated Symptoms: other (Reported shortness of breath, altered mental status, hypothermia, nausea) Treatments Prior to Arrival: other (EMS transportation) - Related Data Home Medications Medication Instructions Recorded Confirmed Last Taken Apixaban [Eliquis] 2.5 mg PO BID 12/22/16 12/22/16 12/20/16 Clopidogrel Bisulfate [Plavix] 75 mg PO DAILY 12/22/16 12/22/16 1 Day Ago ~12/21/16 Duloxetine HCl [Cymbalta] 30 mg PO DAILY 12/22/16 12/22/16 12/20/16 Escitalopram [Lexapro] 10 mg PO DAILY 12/22/16 12/22/16 12/20/16 Folic Acid/Multivit-Min/Lutein 1 tab PO QDAY 12/22/16 12/22/16 12/20/16 [Therapeutic-M] Glimepiride [Amaryl] 4 mg PO BID 12/22/16 12/22/16 12/20/16 HYDROcodone/APAP 10-325 [[place] 1 each PO Q6HR PRN 12/22/16 12/22/16 Unknown 10-325 mg TAB] Linagliptin [Tradjenta] 10 mg PO DAILY 12/22/16 12/22/16 12/20/16 Pantoprazole [Protonix TAB] 20 mg QDAY 12/22/16 12/22/16 12/20/16 Ropinirole HCl [rOPINIRole] 10 mg PO DAILY 12/22/16 12/22/16 12/20/16 cloNIDine [Catapres] 0.2 mg PO BID 12/22/16 12/22/16 1 Day Ago ~12/21/16 hydrALAZINE [Apresoline TAB] 100 mg PO TID 12/22/16 12/22/16 1 Day Ago ~12/21/16 Previous Rx's Medication Instructions Recorded Last Taken Type Metoclopramide HCl [Reglan TAB] 5 mg PO Q6H PRN #30 tablet 01/02/17 Unknown Rx Promethazine [Phenergan] 25 mg PO Q6HR PRN #20 tablet 01/02/17 Unknown Rx Allergies Allergy/AdvReac Type Severity Reaction Status Date / Time aspirin Allergy Hives Verified 12/21/16 20:49 ED Review of Systems ROS: Stated complaint: HIGH BLOOD SUGAR, BRADICARDIC, COLD Other details as noted in HPI Comment: Unobtainable due to pts medical conditions (Altered mental status) ED Past Medical Hx - Past Medical History Previous Medical History?: Yes Hx Hypertension: Yes Hx Congestive Heart Failure: No Hx Diabetes: Yes Hx Deep Vein Thrombosis: Yes Hx Renal Disease: Yes Hx Asthma: No Hx COPD: No Additional medical history: spinal stenosis, Hemodialysis (, , sun) - Surgical History Past Surgical History?: Yes Hx Cholecystectomy: Yes Additional Surgical History: 1990 - Social History Smoking Status: Former Smoker Substance Use Type: None - Medications Home Medications: Home Medications Medication Instructions Recorded Confirmed Last Taken Type Apixaban [Eliquis] 2.5 mg PO BID 12/22/16 12/22/16 12/20/16 History Clopidogrel Bisulfate [Plavix] 75 mg PO DAILY 12/22/16 12/22/16 1 Day Ago History ~12/21/16 Duloxetine HCl [Cymbalta] 30 mg PO DAILY 12/22/16 12/22/16 12/20/16 History Escitalopram [Lexapro] 10 mg PO DAILY 12/22/16 12/22/16 12/20/16 History Folic Acid/Multivit-Min/Lutein 1 tab PO QDAY 12/22/16 12/22/16 12/20/16 History [Therapeutic-M] Glimepiride [Amaryl] 4 mg PO BID 12/22/16 12/22/16 12/20/16 History HYDROcodone/APAP 10-325 [[place] 1 each PO Q6HR PRN 12/22/16 12/22/16 Unknown History 10-325 mg TAB] Linagliptin [Tradjenta] 10 mg PO DAILY 12/22/16 12/22/16 12/20/16 History Pantoprazole [Protonix TAB] 20 mg QDAY 12/22/16 12/22/16 12/20/16 History Ropinirole HCl [rOPINIRole] 10 mg PO DAILY 12/22/16 12/22/16 12/20/16 History cloNIDine [Catapres] 0.2 mg PO BID 12/22/16 12/22/16 1 Day Ago History ~12/21/16 hydrALAZINE [Apresoline TAB] 100 mg PO TID 12/22/16 12/22/16 1 Day Ago History ~12/21/16 Metoclopramide HCl [Reglan TAB] 5 mg PO Q6H PRN #30 tablet 01/02/17 Unknown Rx Promethazine [Phenergan] 25 mg PO Q6HR PRN #20 tablet 01/02/17 Unknown Rx ED Physical Exam - General General appearance: alert, other (Will make eye contact, slow to respond, answer s limited questions.) - Head Head exam: Present: atraumatic, normocephalic - Eye Eye exam: Present: normal appearance - ENT ENT exam: Present: mucous membranes moist - Neck Neck exam: Present: normal inspection, full ROM - Respiratory Respiratory exam: Present: normal lung sounds bilaterally. Absent: respiratory distress, wheezes, rales, rhonchi - Cardiovascular Cardiovascular Exam: Present: regular rate, normal rhythm, normal heart sounds. Absent: systolic murmur, diastolic murmur, rubs, gallop - GI/Abdominal GI/Abdominal exam: Present: soft, normal bowel sounds. Absent: distended, tenderness, guarding, rebound - Extremities Exam Extremities exam: Present: other (Right bicep fistula) - Neurological Exam Neurological exam: Present: altered, other (Oriented to name only) - Psychiatric Psychiatric exam: Present: depressed, flat affect - Skin Skin exam: Present: dry, intact, normal color, other (Cold to touch). Absent: rash ED Course Vital Signs 06/12/21 06/12/21 06/12/21 21:58 22:30 22:46 Temperature Pulse Rate 41 L 42 L 47 L Respiratory 16 12 Rate Blood Pressure 94/47 95/48 Blood Pressure 82/47 [Left] O2 Sat by Pulse 97 99 Oximetry 06/12/21 06/12/21 06/12/21 23:00 23:02 23:15 Temperature 84.5 F L Pulse Rate 45 L Respiratory 16 18 Rate Blood Pressure 105/51 Blood Pressure [Left] O2 Sat by Pulse 99 Oximetry 06/12/21 06/12/21 06/12/21 23:16 23:24 23:30 Temperature Pulse Rate 48 L 50 L 56 L Respiratory 6 L 13 Rate Blood Pressure 92/52 92/52 103/43 Blood Pressure [Left] O2 Sat by Pulse 100 99 100 Oximetry 06/12/21 06/13/21 06/13/21 23:46 00:00 00:28 Temperature 85.8 F L Pulse Rate 47 L 53 L Respiratory 10 L 12 Rate Blood Pressure 96/45 90/45 Blood Pressure [Left] O2 Sat by Pulse 100 99 Oximetry 06/13/21 06/13/21 06/13/21 00:30 01:00 01:16 Temperature Pulse Rate 50 L 57 L 55 L Respiratory 16 8 L 17 Rate Blood Pressure 89/48 109/47 119/50 Blood Pressure [Left] O2 Sat by Pulse 97 100 99 Oximetry 06/13/21 06/13/21 02:16 02:30 Temperature Pulse Rate 60 57 L Respiratory 10 L 18 Rate Blood Pressure 98/68 Blood Pressure [Left] O2 Sat by Pulse 100 100 Oximetry ED Medical Decision Making - Lab Data Result diagrams: 06/12/21 22:53 06/12/21 22:53 - EKG Data -: EKG Interpreted by Me Rate: bradycardia - EKG Data 06/12/21 23:59 EKG obtained 2017 EKG interpreted by me Rate 40 bpm sinus bradycardia with PVC left bundle branch block prolonged QTC - Radiology Data Radiology results: report reviewed Patient Name: ANGELICA LUCAS Gender: Female Date of : 1965 Referring Provider: DANIELA RODRIGUEZ Organization: [facility] Accession Number: [id number] Requested Date: June 13, 2021 00:28 Report Status: Final Requested Procedure: 1 Procedure Description: CT head/brain wo con Modality: CT Findings Reporting MD: Eagle Dee Dictation Time: June 13, 2021 01:22 Unarmed Security Officer: Not available Retail Merchandising Manager Date: CT HEAD WITHOUT CONTRAST INDICATION / CLINICAL INFORMATION: altered mental status. TECHNIQUE: CT of the head was performed without administration of intravenous contrast. All CT scans at this location are performed using CT dose reduction for ALARA by means of automated exposure c ontrol. COMPARISON: None available. FINDINGS: CEREBRAL PARENCHYMA: No significant abnormality. No acute territorial infarct. HEMORRHAGE: None. EXTRA-AXIAL SPACES: Normal in size and morphology for the patient's age. VENTRICULAR SYSTEM: Normal in size and morphology for the patient's age. MIDLINE SHIFT / HERNIATION: None. CEREBELLUM / BRAINSTEM: No significant abnormality. ORBITS: Normal as visualized. SOFT TISSUES: No significant abnormality. SKULL: No significant abnormality. PARANASAL SINUSES / MASTOID AIR CELLS: Normal as visualized. ADDITIONAL FINDINGS: None. IMPRESSION: 1. No acute intracranial abnormality. Signer Name: Eagle Dee II, MD Signed: 06/13/2021 1:22 AM Workstation Name: [id number] - Medical Decision Making 1. Accidental hypothermia due to exposure versus sepsis. Daughter did state that patient was outside for. Time. No overt signs of sepsis. Consideration: Myxedema coma. TSH within normal limits. Blood pressure and bradycardia improved with warming measures. 2. Possible sepsis with profound hypothermia normal white count lactic acidosis present broad-spectrum antibiotics initiated emergency department 3. End-stage renal disease on hemodialysis potassium normal without respiratory distress 4. Acute metabolic encephalopathy due to hypothermia. Mental status improved with warming measures. CT head without evidence of intracranial hemorrhage. Patient is admitted ICU in fair condition Critical Care Time: Yes Critical care time in (mins) excluding proc time.: 40 Critical care attestation.: If time is entered above; I have spent that time in minutes in the direct care of this critically ill patient, excluding procedure time. 40 minutes of critical care time excluding procedures were used in the care of the patient. I came immediately to the bedside upon patient's arrival. I obtained history from EMS at the bedside. I discussed treatment plan with the nursing team members. I reviewed electronic record. I was concerned for sepsis. I was concerned for hyperkalemia. I was concerned for DKA. Patient required multiple interventions and reassessments. ED Disposition Clinical Impression: Accidental hypothermia, Sepsis, ESRD (end stage renal disease) on dialysis, Acu te metabolic encephalopathy Disposition: ADMITTED INPATIENT Is pt being admited?: Yes Does the pt Need Aspirin: No Condition: Fair
[2021-06-12] MEDS ORDERED: ACETAMINOPHEN 500 MG TAB PO ONE (22:44)
[2021-06-12 23:08] LABS: Basophils # (Auto) 0.1 K/mm3 (0.0-0.1); Basophils % (Auto) 1.1 % (0.0-1.8); Hematocrit 31.1 % (30.3-42.9); Hemoglobin 9.9 gm/dl (10.1-14.3); Lymphocytes # (Auto) 0.4 K/mm3 (1.2-5.4); Lymphocytes % (Auto) 7.9 % (13.4-35.0); Mean Corpuscular HGB Conc 32 % (30-34); Mean Corpuscular Volume 98 fl (79-97); Monocytes # (Auto) 0.5 K/mm3 (0.0-0.8); Monocytes % (Auto) 9.2 % (0.0-7.3); Platelet Count 295 K/mm3 (140-440); Red Blood Count 3.17 M/mm3 (3.65-5.03); Red Cell Distribution Width 16.3 % (13.2-15.2)
[2021-06-12 23:22] LABS: Alanine Aminotransferase 7 units/L (7-56); Albumin 3.8 g/dL (3.9-5); Blood Urea Nitrogen 37 mg/dL (7-17); Calcium 9.9 mg/dL (8.4-10.2); Hemolysis Index 0
[2021-06-12 23:25] LABS: BUN/Creatinine Ratio 5; Bilirubin,Direct < 0.2 mg/dL (0-0.2)
[2021-06-13] MEDS ORDERED: CEFEPIME/NS 1 GM/100 ML 1 GM/100 ML BAG IV ONE (00:26)
[2021-06-13] MEDS ORDERED: VANCOMYCIN/NS 1 GM/250 ML 1 GM/250 ML BAG IV ONE (00:26)
[2021-06-13] MEDS ORDERED: SODIUM CHLORIDE 0.9% 500 ML 500 ML IV ONE (00:29)
[2021-06-13] MEDS ORDERED: DEXTROSE 50% IN WATER (25GM) 50 ML SYRINGE IV PRN (02:07)
[2021-06-13] MEDS ORDERED: MAGNESIUM HYDROXIDE (MOM) ORAL LIQD UDC PO PRN (02:07)
[2021-06-13] MEDS ORDERED: SODIUM CHLORIDE 0.9% 1000 ML 1,000 ML IV SCH (02:15)
--- NOTE | 2021-06-13 02:24 | History and Physical Report ---
History of Present Illness Date of examination: 06/13/21 Date of admission: 06/13/2021 Chief complaint: Altered mental status History of present illness: 55-year-old female with known history of end-stage renal disease on dialysisTuesdays, and Saturdays, diabetes mellitus, hypertension, history of DVT and gastroparesis brought into the emergency room via EMS for changes in mental status bradycardia and hypoglycemia.. Family members were said to have called EMS because patient was having some shortness of breath was becoming altered. According to family patient has been sick over the weekend and has been having some nausea and vomiting. Patient was said to be lethargic. Upon arrival in the emergency room patient was found to be hypothermic and had to be put on a Howard hugger. Patient missed her dialysis yesterday because she was having some nausea and vomiting which she had attributed to gastroparesis. Work-up in the emergency room today, significant findings were lactic acid of 3.3, BUN of 37 creatinine of 8.1. Patient became more alert and oriented after receiving IV fluid and after being placed on a Howard hugger in the emergency room. She was also started on empiric IV antibiotics. Past History Past Medical History: diabetes, dialysis, ESRD, hypertension, other (spinal stenosis, Hemodialysis (, , sun)) Past Surgical History: cholecystectomy, Social history: smoking (Former smoker) Family history: no significant family history Medications and Allergies Allergies Allergy/AdvReac Type Severity Reaction Status Date / Time aspirin Allergy Hives Verified 12/21/16 20:49 Home Medications Medication Instructions Recorded Confirmed Last Taken Type Apixaban [Eliquis] 2.5 mg PO BID 12/22/16 12/22/16 12/20/16 History Clopidogrel Bisulfate [Plavix] 75 mg PO DAILY 12/22/16 12/22/16 1 Day Ago History ~12/21/16 Duloxetine HCl [Cymbalta] 30 mg PO DAILY 12/22/16 12/22/16 12/20/16 History Escitalopram [Lexapro] 10 mg PO DAILY 12/22/16 12/22/16 12/20/16 History Folic Acid/Multivit-Min/Lutein 1 tab PO QDAY 12/22/16 12/22/16 12/20/16 History [Therapeutic-M] Glimepiride [Amaryl] 4 mg PO BID 12/22/16 12/22/16 12/20/16 History HYDROcodone/APAP 10-325 [[place] 1 each PO Q6HR PRN 12/22/16 12/22/16 Unknown History 10-325 mg TAB] Linagliptin [Tradjenta] 10 mg PO DAILY 12/22/16 12/22/16 12/20/16 History Pantoprazole [Protonix TAB] 20 mg QDAY 12/22/16 12/22/16 12/20/16 History Ropinirole HCl [rOPINIRole] 10 mg PO DAILY 12/22/16 12/22/16 12/20/16 History cloNIDine [Catapres] 0.2 mg PO BID 12/22/16 12/22/16 1 Day Ago History ~12/21/16 hydrALAZINE [Apresoline TAB] 100 mg PO TID 12/22/16 12/22/16 1 Day Ago History ~12/21/16 Metoclopramide HCl [Reglan TAB] 5 mg PO Q6H PRN #30 tablet 01/02/17 Unknown Rx Promethazine [Phenergan] 25 mg PO Q6HR PRN #20 tablet 01/02/17 Unknown Rx Active Meds: Active Medications Acetaminophen (Acetaminophen 325 Mg Tab) 650 mg PO Q6H PRN PRN Reason: Pain MILD(1-3)/Fever >100.5/SHERMAN Dextrose (Dextrose 50% In Water (25gm) 50 Ml Syringe) 50 ml IV Q30MIN PRN; Protocol PRN Reason: Hypoglycemia Dextrose (Dextrose 50% In Water (25gm) 50 Ml Syringe) 50 ml IV Q30MIN PRN; Protocol PRN Reason: Hypoglycemia Sodium Chloride (Nacl 0.9% 1000 Ml) 1,000 mls @ 125 mls/hr IV DIRECT SHARI Insulin Human Lispro (Insulin Lispro 100 Unit/Ml) 0 unit SUB-Q ACHS SHARI; Protocol Magnesium Hydroxide (Magnesium Hydroxide (Mom) Oral Liqd Udc) 30 ml PO Q4H PRN PRN Reason: Constipation Morphine Sulfate (Morphine 2 Mg/1 Ml Inj) 2 mg IV Q4H PRN PRN Reason: Pain, Moderate (4-6) Morphine Sulfate (Morphine 4 Mg/1 Ml Inj) 4 mg IV Q4H PRN PRN Reason: Pain , Severe (7-10) Ondansetron HCl (Ondansetron 4 Mg/2 Ml Inj) 4 mg IV Q8H PRN PRN Reason: Nausea And Vomiting Sodium Chloride (Sodium Chloride 0.9% 10 Ml Flush Syringe) 10 ml IV BID SHARI Sodium Chloride (Sodium Chloride 0.9% 10 Ml Flush Syringe) 10 ml IV PRN PRN PRN Reason: LINE FLUSH Review of Systems Constitutional: no fever, no chills Ears, nose, mouth and throat: no nasal congestion, no sore throat Cardiovascular: no chest pain, no palpitations Respiratory: no cough, no shortness of breath Gastrointestinal: no abdominal pain, no nausea, no vomiting, no diarrhea Genitourinary Female: no pelvic pain, no flank pain, no dysuria Musculoskeletal: no neck pain, no low back pain Integumentary: no rash, no pruritis Neurological: no headaches, no confusion Psychiatric: no anxiety, no depression Endocrine: no polyphagia, no polydipsia, no polyuria, no nocturia Exam - Constitutional Vitals: Temp Pulse Resp BP Pulse Ox 85.8 F L 55 L 17 119/50 99 06/13/21 00:28 06/13/21 01:16 06/13/21 01:16 06/13/21 01:16 06/13/21 01:16 General appearance: Present: no acute distress, well-nourished - EENT Eyes: Present: PERRL, EOM intact. Absent: scleral icterus ENT: hearing intact, clear oral mucosa, dentition normal - Neck Neck: Present: supple, normal ROM - Respiratory Respiratory effort: normal Respiratory: bilateral: CTA - Cardiovascular Rhythm: regular Heart Sounds: Present: S1 & S2. Absent: systolic murmur, diastolic murmur, rub, click - Extremities Extremities: no ischemia, pulses intact, pulses symmetrical, No edema, normal temperature, normal color, Full ROM Peripheral Pulses: within normal limits - Abdominal General gastrointestinal: Present: soft, non-tender, non-distended, normal bowel sounds. Absent: mass - Integumentary Integumentary: Present: clear, warm, dry. Absent: rash - Musculoskeletal Musculoskeletal: strength equal bilaterally - Psychiatric Psychiatric: appropriate mood/affect, intact judgment & insight, memory intact, cooperative - Neurologic Neurologic: CNII-XII intact, no focal deficits, moves all extremities Results - Labs CBC & Chem 7: 06/12/21 22:53 06/12/21 22:53 Labs: Abnormal lab results 06/12/21 06/12/21 06/12/21 Range/Units 22:53 22:53 22:53 RBC 3.17 L (3.65-5.03) M/mm3 Hgb 9.9 L (10.1-14.3) gm/dl MCV 98 H (79-97) fl RDW 16.3 H (13.2-15.2) % Lymph % (Auto) 7.9 L (13.4-35.0) % [place] % (Auto) 9.2 H (0.0-7.3) % Lymph # (Auto) 0.4 L (1.2-5.4) K/mm3 Seg Neutrophils % 81.8 H (40.0-70.0) % Sodium 135 L (137-145) mmol/L Chloride 94.8 L (98-107) mmol/L BUN 37 H (7-17) mg/dL Creatinine 8.1 H (0.6-1.2) mg/dL Glucose 332 H (65-100) mg/dL Lactic Acid 3.30 H* (0.7-2.0) mmol/L Albumin 3.8 L (3.9-5) g/dL Assessment and Plan - Patient Problems (1) Accidental hypothermia Current Visit: Yes Status: Acute Plan to address problem: Patient placed on a Howard hugger. Will monitor vital signs closely. (2) Acute metabolic encephalopathy Current Visit: Yes Status: Acute Plan to address problem: Patient placed on IV fluid and antibiotics. Will monitor mental status. (3) ESRD (end stage renal disease) on dialysis Current Visit: Yes Status: Acute Plan to address problem: Consult placed to gang drill press operator for dialysis. (4) Sepsis Current Visit: Yes Status: Acute Plan to address problem: Etiology is unclear. Patient placed on empiric IV antibiotics and IV fluid. (5) Diabetes Current Visit: No Status: Acute Plan to address problem: Patient placed on sliding scale insulin. We will monitor Accu-Cheks. (6) DVT prophylaxis Current Visit: Yes Status: Acute Plan to address problem: Patient placed on subcutaneous heparin. (7) Full code status Current Visit: Yes Status: Acute Plan to address problem: Patient is full code.
[2021-06-13] MEDS ORDERED: DEXTROSE 10% *Hypoglycemia IV PRN (02:33)
[2021-06-13] MEDS: MORPHINE 2 MG/1 ML INJ IV PRN ×2 (03:50→17:36)
[2021-06-13] MEDS ORDERED: CEFEPIME/NS 2 GM/100 ML 2 GM/100 ML BAG IV SCH (04:00)
[2021-06-13] MEDS ORDERED: VANCOMYCIN PHARMACY TO DOSE IV SCH (04:00)
--- NOTE | 2021-06-13 09:51 | Consultation ---
History of Present Illness - Reason for Consult Consult date: 06/13/21 end stage renal disease Requesting physician: KENYATTA OSHEA - History of Present Illness This is a 55-year-old female with history of end-stage renal disease on hemodialysis Sunday, diabetes mellitus, hypertension, DVT, gastroparesis who presents via EMS for altered mental status, hyperglycemia, bradycardia. Family members called EMS for shortness of breath. Patient complains of nausea. Patient is slow to respond slightly altered. She is very cold to touch. Patient became sick on Sunday. She had vomiting attributed to gastroparesis. Daughter noticed lethargy and slurred speech. Daughter felt that her sugar was low. Daughter gave her table sugar. Patient undergoes dialysis at [facility] on TTS schedule. Patient is currently hypothermic and on warming blanket. She is on room air. Oxygen saturation is 100% Past History Past Medical History: diabetes, dialysis, ESRD, hypertension, other (spinal stenosis, Hemodialysis (, , sun)) Past Surgical History: cholecystectomy, Social history: smoking (Former smoker) Family history: no significant family history Medications and Allergies Allergies Allergy/AdvReac Type Severity Reaction Status Date / Time aspirin Allergy Hives Verified 12/21/16 20:49 Home Medications Medication Instructions Recorded Confirmed Last Taken Type Apixaban [Eliquis] 2.5 mg PO BID 12/22/16 12/22/16 12/20/16 History Clopidogrel Bisulfate [Plavix] 75 mg PO DAILY 12/22/16 12/22/16 1 Day Ago History ~12/21/16 Duloxetine HCl [Cymbalta] 30 mg PO DAILY 12/22/16 12/22/16 12/20/16 History Escitalopram [Lexapro] 10 mg PO DAILY 12/22/16 12/22/16 12/20/16 History Folic Acid/Multivit-Min/Lutein 1 tab PO QDAY 12/22/16 12/22/16 12/20/16 History [Therapeutic-M] Glimepiride [Amaryl] 4 mg PO BID 12/22/16 12/22/16 12/20/16 History HYDROcodone/APAP 10-325 [[place] 1 each PO Q6HR PRN 12/22/16 12/22/16 Unknown History 10-325 mg TAB] Linagliptin [Tradjenta] 10 mg PO DAILY 12/22/16 12/22/16 12/20/16 History Pantoprazole [Protonix TAB] 20 mg QDAY 12/22/16 12/22/16 12/20/16 History Ropinirole HCl [rOPINIRole] 10 mg PO DAILY 12/22/16 12/22/16 12/20/16 History cloNIDine [Catapres] 0.2 mg PO BID 12/22/16 12/22/16 1 Day Ago History ~12/21/16 hydrALAZINE [Apresoline TAB] 100 mg PO TID 12/22/16 12/22/16 1 Day Ago History ~12/21/16 Metoclopramide HCl [Reglan TAB] 5 mg PO Q6H PRN #30 tablet 01/02/17 Unknown Rx Promethazine [Phenergan] 25 mg PO Q6HR PRN #20 tablet 01/02/17 Unknown Rx Active Meds: Active Medications Acetaminophen (Acetaminophen 325 Mg Tab) 650 mg PO Q6H PRN PRN Reason: Pain MILD(1-3)/Fever >100.5/SHERMAN Dextrose (Dextrose 10% *Hypoglycemia) 0 ml IV DIRECT PRN; Protocol PRN Reason: Hypoglycemia Sodium Chloride (Nacl 0.9% 1000 Ml) 1,000 mls @ 125 mls/hr IV DIRECT SHARI Last Admin: 06/13/21 03:51 Dose: 125 mls/hr Cefepime HCl (Cefepime/Ns 1 Gm/100 Ml) 1 gm in 100 mls @ 200 mls/hr IV Q24HR SHARI Insulin Human Lispro (Insulin Lispro 100 Unit/Ml) 0 unit SUB-Q ACHS SHARI; Protocol Magnesium Hydroxide (Magnesium Hydroxide (Mom) Oral Liqd Udc) 30 ml PO Q4H PRN PRN Reason: Constipation Morphine Sulfate (Morphine 2 Mg/1 Ml Inj) 2 mg IV Q4H PRN PRN Reason: Pain, Moderate (4-6) Last Admin: 06/13/21 03:50 Dose: 2 mg Morphine Sulfate (Morphine 4 Mg/1 Ml Inj) 4 mg IV Q4H PRN PRN Reason: Pain , Severe (7-10) Ondansetron HCl (Ondansetron 4 Mg/2 Ml Inj) 4 mg IV Q8H PRN PRN Reason: Nausea And Vomiting Sodium Chloride (Sodium Chloride 0.9% 10 Ml Flush Syringe) 10 ml IV BID SHARI Sodium Chloride (Sodium Chloride 0.9% 10 Ml Flush Syringe) 10 ml IV PRN PRN PRN Reason: LINE FLUSH Review of Systems All systems: negative (Negative except as noted above) Exam - Vital Signs Vital signs: Vital Signs Pulse Resp BP Pulse Ox 41 L 16 82/47 97 06/12/21 21:58 06/12/21 21:58 06/12/21 21:58 06/12/21 21:58 - General Appearance General appearance: well-developed, well-nourished, appears stated age EENT: PERRL, mucous membranes moist Neck: Present: neck supple, trachea midline. Absent: JVD/HJR, Masses Respiratory: Clear to Ascultation Heart: regular, normal heart rate, S1S2, no murmurs Gastrointestinal: Present: normal, normoactive bowel sounds Integumentary: no rash, other (AV fistula right upper arm. Good bruit and thrill.) Results - Lab Results 06/12/21 22:53 06/12/21 22:53 Most recent lab results Calcium 9.9 mg/dL (8.4-10.2) 06/12/21 22:53 Calcium 10.0 mg/dL (8.4-10.2) 06/12/21 22:53 Phosphorus 4.30 mg/dL (2.5-4.5) 06/12/21 22:53 Magnesium 2.20 mg/dL (1.7-2.3) 06/12/21 22:53 Assessment and Plan Impression * End-stage renal disease on maintenance hemodialysis * Sepsis * Hypothermia * Hypertension * Diabetes * Anemia secondary to ESRD * Lactic acidosis Recommendations * Patient is clinically not volume overloaded and electrolytes are all accep table. No urgent indication for dialysis today * Shall arrange for hemodialysis for tomorrow and keep her on TTS schedule as outpatient * IV antibiotic and treatment of sepsis as per primary team * Epogen with dialysis * Adjust diet and meds for ESRD state * No IV, BP or venipuncture in her access arm * Avoid nephrotoxins * Monitor fluid status and electrolytes closely * Thank you very much for the consultation. Shall follow along with you
[2021-06-13] MEDS: MORPHINE 4 MG/1 ML INJ IV PRN ×2 (09:54→21:58)
[2021-06-13] MEDS: CEFEPIME/NS 1 GM/100 ML 1 GM/100 ML BAG IV SCH (09:54)
[2021-06-13] MEDS ORDERED: EPOETIN ALFA-EPBX 10,000 UNIT/1 ML VIAL IV PRN (10:00)
[2021-06-13] MEDS ORDERED: SODIUM CHLORIDE 0.9% 100 ML IV PRN (10:00)
[2021-06-13] MEDS: INSULIN LISPRO 100 UNIT/ML SUB-Q SCH ×4 (12:08→22:00)
--- NOTE | 2021-06-13 12:35 | Event Note ---
Date: 06/13/21 Patient seen and examined, reports Gastroparesis resulting to poor PO intake the past few days. also she was on Glipizide probably led to Hypoglycemia from Poor PO intake. Will restart home meds and switch her home Reglan to the liquid formulation. Patient can be downgraded if no objection from critical care team. Discharge when able to tolerate PO. For now q6hr accuchecks.
--- NOTE | 2021-06-13 12:54 | Consultation ---
History of Present Illness Consult date: 06/13/21 Requesting physician: KENYATTA OSHEA Reason for consult: other (Sepsis; Hypothermia) History of present illness: PULMONARY/CCM CONSULT NOTE (Full dictation # [id number]) Please see dictated notes for full details Past History Past Medical History: diabetes, dialysis, ESRD, hypertension, other (spinal stenosis, Hemodialysis (Tues, Thurs, sat)) Past Surgical History: cholecystectomy, Social history: smoking (Former smoker) Family history: no significant family history Medications and Allergies Allergies Allergy/AdvReac Type Severity Reaction Status Date / Time aspirin Allergy Hives Verified 12/21/16 20:49 Home Medications Medication Instructions Recorded Confirmed Last Taken Type Apixaban [Eliquis] 2.5 mg PO BID 12/22/16 12/22/16 12/20/16 History Clopidogrel Bisulfate [Plavix] 75 mg PO DAILY 12/22/16 12/22/16 1 Day Ago History ~12/21/16 Duloxetine HCl [Cymbalta] 30 mg PO DAILY 12/22/16 12/22/16 12/20/16 History Escitalopram [Lexapro] 10 mg PO DAILY 12/22/16 12/22/16 12/20/16 History Folic Acid/Multivit-Min/Lutein 1 tab PO QDAY 12/22/16 12/22/16 12/20/16 History [Therapeutic-M] Glimepiride [Amaryl] 4 mg PO BID 12/22/16 12/22/16 12/20/16 History HYDROcodone/APAP 10-325 [[place] 1 each PO Q6HR PRN 12/22/16 12/22/16 Unknown History 10-325 mg TAB] Linagliptin [Tradjenta] 10 mg PO DAILY 12/22/16 12/22/16 12/20/16 History Pantoprazole [Protonix TAB] 20 mg QDAY 12/22/16 12/22/16 12/20/16 History Ropinirole HCl [rOPINIRole] 10 mg PO DAILY 12/22/16 12/22/16 12/20/16 History cloNIDine [Catapres] 0.2 mg PO BID 12/22/16 12/22/16 1 Day Ago History ~12/21/16 hydrALAZINE [Apresoline TAB] 100 mg PO TID 12/22/16 12/22/16 1 Day Ago History ~12/21/16 Metoclopramide HCl [Reglan TAB] 5 mg PO Q6H PRN #30 tablet 01/02/17 Unknown Rx Promethazine [Phenergan] 25 mg PO Q6HR PRN #20 tablet 01/02/17 Unknown Rx Active Meds: Active Medications Acetaminophen (Acetaminophen 325 Mg Tab) 650 mg PO Q6H PRN PRN Reason: Pain MILD(1-3)/Fever >100.5/SHERMAN Hydrocodone Bitart/Acetaminophen (Hydrocodone/Acetaminophen 10-325mg Tab) 1 each PO Q6HR PRN PRN Reason: PAIN Clopidogrel Bisulfate (Clopidogrel 75 Mg Tab) 75 mg PO DAILY SHARI Dextrose (Dextrose 10% *Hypoglycemia) 0 ml IV DIRECT PRN; Protocol PRN Reason: Hypoglycemia Duloxetine HCl (Duloxetine 30 Mg Cap) 30 mg PO DAILY SHARI Epoetin Diego-epbx (Epoetin Diego-Epbx 10,000 Unit/1 Ml Vial) 10,000 unit IV PRESLEY PRN PRN Reason: hemodialysis Escitalopram Oxalate (Escitalopram 10 Mg Tab) 10 mg PO DAILY SHARI Sodium Chloride (Nacl 0.9% 1000 Ml) 1,000 mls @ 125 mls/hr IV DIRECT SHARI Last Admin: 06/13/21 03:51 Dose: 125 mls/hr Cefepime HCl (Cefepime/Ns 1 Gm/100 Ml) 1 gm in 100 mls @ 200 mls/hr IV Q24HR SHARI Last Infusion: 06/13/21 12:09 Dose: Infused Sodium Chloride (Nacl 0.9%) 100 mls @ 999 mls/hr IV PRESLEY PRN PRN Reason: Hypotension Insulin Human Lispro (Insulin Lispro 100 Unit/Ml) 0 unit SUB-Q ACHS SHARI; Protocol Last Admin: 06/13/21 12:08 Dose: Not Given Magnesium Hydroxide (Magnesium Hydroxide (Mom) Oral Liqd Udc) 30 ml PO Q4H PRN PRN Reason: Constipation Metoclopramide HCl (Metoclopramide 10 Mg/10 Ml Oral Liqd) 5 mg PO Q6H [facility] Miscellaneous Medication (Apixaban) 2.5 mg PO BID [facility] Miscellaneous Medication (Folic Acid/Multivit-Min/Lutein [Therapeutic-M]) 1 tab PO QDAY [facility] Miscellaneous Medication (Ropinirole Hcl [Ropinirole]) 10 mg PO DAILY [facility] Morphine Sulfate (Morphine 2 Mg/1 Ml Inj) 2 mg IV Q4H PRN PRN Reason: Pain, Moderate (4-6) Last Admin: 06/13/21 03:50 Dose: 2 mg Morphine Sulfate (Morphine 4 Mg/1 Ml Inj) 4 mg IV Q4H PRN PRN Reason: Pain , Severe (7-10) Last Admin: 06/13/21 09:54 Dose: 4 mg Ondansetron HCl (Ondansetron 4 Mg/2 Ml Inj) 4 mg IV Q8H PRN PRN Reason: Nausea And Vomiting Promethazine HCl (Promethazine 25 Mg Tab) 25 mg PO Q6HR PRN PRN Reason: Nausea Sodium Chloride (Sodium Chloride 0.9% 10 Ml Flush Syringe) 10 ml IV BID [facility] Last Admin: 06/13/21 11:06 Dose: 10 ml Sodium Chloride (Sodium Chloride 0.9% 10 Ml Flush Syringe) 10 ml IV PRN PRN PRN Reason: LINE FLUSH Physical Examination Vital signs: Vital Signs Pulse Resp BP Pulse Ox 41 L 16 82/47 97 06/12/21 21:58 06/12/21 21:58 06/12/21 21:58 06/12/21 21:58 Results - Laboratory Findings CBC and BMP: 06/12/21 22:53 06/12/21 22:53 Abnormal lab findings: Abnormal Labs 06/12/21 06/12/21 06/12/21 22:53 22:53 22:53 RBC 3.17 L Hgb 9.9 L MCV 98 H RDW 16.3 H Lymph % (Auto) 7.9 L [place] % (Auto) 9.2 H Lymph # (Auto) 0.4 L Seg Neutrophils % 81.8 H Sodium 135 L Chloride 94.8 L BUN 37 H Creatinine 8.1 H Glucose 332 H Lactic Acid 3.30 H* Albumin 3.8 L 06/13/21 03:47 RBC Hgb MCV RDW Lymph % (Auto) [place] % (Auto) Lymph # (Auto) Seg Neutrophils % Sodium Chloride BUN Creatinine Glucose Lactic Acid 2.40 H* Albumin
[2021-06-13] MEDS ORDERED: HYDROcodone/ACETAMINOPHEN 10-325MG TAB PO PRN (13:30)
[2021-06-13] MEDS ORDERED: PROMETHAZINE 25 MG TAB PO PRN (13:30)
[2021-06-13 14:06] LABS: Hepatitis B Surface Antigen Non-Reactive (Negative); Hepatitis C Virus Antibody Non-Reactive (NonReactive)
[2021-06-13] MEDS ORDERED: METOCLOPRAMIDE 10 MG/10 ML ORAL LIQD PO SCH (16:30)
[2021-06-13] MEDS: ONDANSETRON 4 MG/2 ML INJ IV PRN (17:32)
[2021-06-13] MEDS: METOCLOPRAMIDE 10 MG/2 ML INJ IV SCH ×2 (17:37→21:59)
[2021-06-13 18:27] LABS: C-Reactive Protein 0.1 mg/dL (0.00-1.30); Calcium 9.4 mg/dL (8.4-10.2)
[2021-06-13] MEDS ORDERED: METOCLOPRAMIDE 10 MG TAB PO PRN (21:46)
[2021-06-13] MEDS: FAMOTIDINE 20 MG/2 ML INJ IV SCH (21:59)
[2021-06-13] MEDS: HEPARIN 5,000 UNIT/1 ML VIAL SUB-Q SCH (21:59)
[2021-06-13] MEDS ORDERED: NON-FORMULARY EACH (Apixaban 2.5 MG Tablet) PO SCH (22:00)
--- NOTE | 2021-06-13 23:36 | Consultation ---
DATE OF CONSULTATION: 06/13/2021 PULMONARY CRITICAL CARE CONSULTATION NOTE CONSULTING PHYSICIAN: Dr. Peter Walker. REASON FOR CONSULTATION: Sepsis, hypothermia. CHIEF COMPLAINT AND HISTORY OF PRESENT ILLNESS: The patient is a now 55-year-old female with past medical history significant for a diagnosis of end-stage renal disease, on dialysis Tuesdays, , Saturdays, still making urine. She has been on dialysis for about 4 years, but also history of diabetes with complications, mostly gastroparesis, for which she is on Reglan at home. She was brought into the Emergency Room via EMS for change in mental status, bradycardia and hypoglycemia. Family members called because of shortness of breath and altered mental status. She had been sick over the weekend prior to coming in, had some nausea and vomiting. They found her lethargic. She was hypothermic. The mentioned temperature, I believe was around 89 degrees Fahrenheit. They put her on a Howard Hugger and brought her into the Emergency Room. She apparently had missed her dialysis session prior to showing up in the ER. In the ER, she had a lactic acidosis and elevated BUN and creatinine, and we were asked to assist with management. In the ER, our initial temperature was 83.1 degrees Fahrenheit rectal and she was hypothermic. When I stopped by to see her, she was resting in bed. She had received volume resuscitation with a good response, was still complaining mostly of the gastroparesis. She denied any cough or expectoration. Denied any chest pains. Denied palpitations. She denied new-onset leg pain or swelling, either unilaterally or bilaterally. She describes herself as a former smoker and gives herself a less than [id number] tobacco smoking history. This really is as much of the history of presentation as I have. PAST MEDICAL HISTORY: End-stage renal disease, on dialysis, diabetes, hypertension, history of a deep venous thrombosis, history of gastroparesis. PAST SURGICAL HISTORY: She has had a cholecystectomy, and she has had a in the past. MEDICATIONS: She was on at the time I stopped by to see her according to the medication administration record included the following: Tylenol 650 mg p.o. q. 6 hours p.r.n. mild pain or fevers, hydrocodone/[place] 10/325 mg 1 tablet p.o. q. 6 hours p.r.n. moderate pain, cefepime 1 gram IV daily, Plavix 75 mg p.o. daily, Cymbalta 30 mg p.o. at bedtime, Retacrit 10,000 units IV with dialysis p.r.n., Lexapro 10 mg p.o. daily, insulin via sliding scale, Reglan 5 mg p.o. q.a.c. and at bedtime, and morphine sulfate 2 mg IV q. 4 hours p.r.n. moderate pain and 4 mg IV q. 4 hours p.r.n. severe pain, a daily multivitamin, Zofran 4 mg IV q. 8 hours p.r.n. nausea and vomiting, p.r.n. Phenergan and a couple of nonformulary medications, the names unknown. ALLERGIES: ASPIRIN, nature of this allergy is unknown. DIET: Well built lady, denies acute weight loss or gain in the preceding few weeks to months. FAMILY AND SOCIAL HISTORY: Lives in the community, less than [id number] tobacco smoking history, no longer smoking. Denies alcohol, illicit drug use or abuse. Denies any other significant family history. REVIEW OF SYSTEMS: No loss of consciousness. No new onset seizures. She did have the altered sensorium at presentation, but denies any new-onset focal weakness. Denies gross hematochezia or melena. Denies gross hematuria or dysuria. She complains of abdominal pain, nausea, vomiting. She denies polydipsia or polyuria. Denies heat or cold intolerance. Denies any sick contacts. Complete 13-system review of system was obtained. Pertinent positives and/or negatives as in body of history above, otherwise they are noncontributory. PHYSICAL EXAMINATION: VITAL SIGNS: On presentation, she was hypothermic, temperature of 83.1 degrees Fahrenheit, pulse of 41, respiratory rate of 16, blood pressure 82/47, O2 sats were 97%, inspired oxygen concentration at that time was not recorded. When I stopped by to see her, her O2 sats were 98%, that was on room air. GENERAL: She is a middle-aged female. Normocephalic, atraumatic. Talking to me in full sentences, but with mildly increased respiratory effort at rest secondary to abdominal discomfort. HEAD, EYES, EARS, NOSE AND THROAT: Anicteric. No conjunctival erythema. Oropharynx was moist. Mallampati II oropharynx. NECK: No gross jugular venous distention, no thyromegaly. Grossly, there were no palpable lymph nodes in the supraclavicular or submandibular lymph node chains. LUNGS: Auscultation of both lung huerta unremarkable. Lungs were clear bilaterally with good bilateral air movement. HEART: Sounds 1 and 2 are heard. There were regular rate and rhythm at the time of my evaluation without overt rubs or murmurs. ABDOMEN: Soft, full, protuberant. Bowel sounds are hypoactive. She is mildly tender diffusely. She gives a pain about 5/10, but this is chronic. No palpable hepatosplenomegaly. EXTREMITIES: Without overt digital clubbing or cyanosis, no pedal edema. Pedal pulses are 2+ bilaterally. NEUROLOGIC: Pupils are equal, round, about 4 mm, reactive to light. Extraocular muscle movements are intact. She moves all 4 extremities spontaneously. SKIN: Normal turgor in the areas I examined without overt cellulitis or rash. Please see the wound care nurses' notes for full description of her skin. PSYCHIATRIC: Mood was depressed. Affect was anxious. She did have intact judgment and insight. LABORATORY DATA: From my review are as follows: Admission white cell count 5600, hemoglobin 9.9, hematocrit 31.1, platelet count 295. No manual differential. Venous blood gas showed a pH of 7.37. Serum sodium 135, potassium 3.6, chloride 95, bicarbonate 22, BUN 37, creatinine 8.1, glucose of 332. Lactic acid level was 3.3, down to 2.4. Liver function test within normal limits. Phosphorus and mag within normal limits. TSH within normal limits. Lipase within normal limits. Hepatitis C screen is negative. Two sets of blood cultures are no growth to date. Chest x-ray shows a couple of stents and what looks like the subclavian vein on the right. She also had a CT of the head, unfortunately it has not been resulted, but I do not see any gross lesions on my review or acute bleeding. ASSESSMENT: 1. Sepsis with shock, septic versus hypovolemic. 2. End-stage renal disease, on dialysis. 3. Acute toxic metabolic encephalopathy. 4. Diabetes with complications. 5. Gastroparesis. 6. Hyponatremia. 7. Hypothermia. 8. Lactic acidosis. 9. History of hypertension. 10. History of deep venous thrombosis. PLAN: I do agree with current therapies. We will continue the cefepime in the short term. I will get CRP levels, lactic acid levels, procalcitonin levels to help guide clinical decision making. We will continue gentle volume resuscitation in the short time in the septic state. Supplemental oxygen as necessary will be given to keep sats greater than or equal to about 90%. Aspiration precautions will be maintained. I will defer to Nephrology for dialysis decisions, but acutely she does not need ultrafiltration. She is not hypoxemic. She is on room air. Her x-ray is clear. I think she can tolerate to the volume resuscitation and blood pressure has responded to it. I am going to put her on GI and DVT prophylaxis. I will change the Reglan from oral to IV, especially while she is having the symptoms of the nausea and vomiting, I will schedule 5 mg IV q.a.c. and at bedtime. She is doing better, and at this point, can be downgraded to the telemetry floor. Chronic disease medications will be deferred to the attending physician. I will repeat the lactic acid level in the morning. Flu and pneumonia vaccination will be addressed per protocol. Continued tobacco abstinence has been counseled. Thank you very much for the consult. We will follow along and make further recommendations as picture progresses/becomes clearer and definitely going to follow the cultures to help deescalate antibiotic therapy. TID: [id number] RECEIPT: [id number] KIKI/RIVERA
[2021-06-14 06:20] LABS: Basophils # (Auto) 0.1 K/mm3 (0.0-0.1); Basophils % (Auto) 1.4 % (0.0-1.8); Eosinophils # (Auto) 0.2 K/mm3 (0.0-0.4); Eosinophils % (Auto) 2.9 % (0.0-4.3); Hematocrit 30.6 % (30.3-42.9); Hemoglobin 9.9 gm/dl (10.1-14.3); Lymphocytes # (Auto) 2.2 K/mm3 (1.2-5.4); Lymphocytes % (Auto) 29.2 % (13.4-35.0); Mean Corpuscular HGB Conc 32 % (30-34); Mean Corpuscular Volume 99 fl (79-97); Monocytes # (Auto) 0.9 K/mm3 (0.0-0.8); Monocytes % (Auto) 12.5 % (0.0-7.3); Platelet Count 367 K/mm3 (140-440); Red Blood Count 3.09 M/mm3 (3.65-5.03); Red Cell Distribution Width 16.6 % (13.2-15.2)
[2021-06-14 06:40] LABS: Calcium 8.8 mg/dL (8.4-10.2)
[2021-06-14] MEDS: INSULIN LISPRO 100 UNIT/ML SUB-Q SCH ×4 (08:37→22:00)
[2021-06-14] MEDS: CLOPIDOGREL 75 MG TAB PO SCH (09:30)
[2021-06-14] MEDS: ESCITALOPRAM 10 MG TAB PO SCH (09:30)
[2021-06-14] MEDS: HEPARIN 5,000 UNIT/1 ML VIAL SUB-Q SCH ×2 (09:30→21:32)
[2021-06-14] MEDS: MORPHINE 4 MG/1 ML INJ IV PRN (09:30)
[2021-06-14] MEDS: DULoxetine 30 MG CAP PO SCH (09:30)
[2021-06-14] MEDS: MULTIVITAMINS,THER W-MINERALS TAB PO SCH (09:30)
[2021-06-14] MEDS: METOCLOPRAMIDE 10 MG/2 ML INJ IV SCH ×4 (09:30→21:32)
--- NOTE | 2021-06-14 09:46 | Progress Note ---
Assessment and Plan Impression * End-stage renal disease on maintenance hemodialysis * Sepsis * Hypothermia * Hypertension * Diabetes * Anemia secondary to ESRD * Lactic acidosis Recommendations * Patient is scheduled for hemodialysis treatment for today * Continue dialysis on TTS schedule * IV antibiotic and treatment of sepsis as per primary team * Epogen with dialysis * Adjust diet and meds for ESRD state * No IV, BP or venipuncture in her access arm * Avoid nephrotoxins * Monitor fluid status and electrolytes closely Subjective Date of service: 06/14/21 Interval history: Patient is comfortable today. Denies any shortness of breath. She does complain of some nausea but no vomiting. Objective - Vital Signs Vital signs: Vital Signs - 12hr 06/13/21 06/13/21 06/14/21 22:00 23:07 00:00 Temperature 98.3 F Pulse Rate 79 87 Respiratory 17 18 Rate Blood Pressure 167/75 O2 Sat by Pulse 96 94 Oximetry 06/14/21 06/14/21 03:29 07:49 Temperature 98.1 F 98.3 F Pulse Rate 72 68 Respiratory 14 18 Rate Blood Pressure 153/75 148/67 O2 Sat by Pulse 98 100 Oximetry - General Appearance General appearance: well-developed, well-nourished, appears stated age EENT: PERRL, mucous membranes moist Neck: no JVD, no thyromegaly, no carotid bruit, supple Respiratory: Present: Clear to Ascultation Cardiology: regular, normal heart rate Gastrointestinal: normal, normoactive bowel sounds Integumentary: no rash, other (AV fistula right upper arm. Good bruit and thrill.) - Lab 06/14/21 05:14 06/14/21 05:14 Most recent lab results Calcium 8.8 mg/dL (8.4-10.2) 06/14/21 05:14 Phosphorus 4.30 mg/dL (2.5-4.5) 06/12/21 22:53 Magnesium 2.20 mg/dL (1.7-2.3) 06/12/21 22:53 Medications & Allergies - Medications Allergies/Adverse Reactions: Allergies aspirin Allergy (Verified 12/21/16 20:49) Hives Home Medications: Home Medications Medication Instructions Recorded Confirmed Last Taken Type Apixaban [Eliquis] 2.5 mg PO BID 12/22/16 12/22/16 12/20/16 History Clopidogrel Bisulfate [Plavix] 75 mg PO DAILY 12/22/16 12/22/16 1 Day Ago History ~12/21/16 Duloxetine HCl [Cymbalta] 30 mg PO DAILY 12/22/16 12/22/16 12/20/16 History Escitalopram [Lexapro] 10 mg PO DAILY 12/22/16 12/22/16 12/20/16 History Folic Acid/Multivit-Min/Lutein 1 tab PO QDAY 12/22/16 12/22/16 12/20/16 History [Therapeutic-M] Glimepiride [Amaryl] 4 mg PO BID 12/22/16 12/22/16 12/20/16 History HYDROcodone/APAP 10-325 [[place] 1 each PO Q6HR PRN 12/22/16 12/22/16 Unknown History 10-325 mg TAB] Linagliptin [Tradjenta] 10 mg PO DAILY 12/22/16 12/22/16 12/20/16 History Pantoprazole [Protonix TAB] 20 mg QDAY 12/22/16 12/22/16 12/20/16 History Ropinirole HCl [rOPINIRole] 10 mg PO DAILY 12/22/16 12/22/16 12/20/16 History cloNIDine [Catapres] 0.2 mg PO BID 12/22/16 12/22/16 1 Day Ago History ~12/21/16 hydrALAZINE [Apresoline TAB] 100 mg PO TID 12/22/16 12/22/16 1 Day Ago History ~12/21/16 Metoclopramide HCl [Reglan TAB] 5 mg PO Q6H PRN #30 tablet 01/02/17 Unknown Rx Promethazine [Phenergan] 25 mg PO Q6HR PRN #20 tablet 01/02/17 Unknown Rx Active Medications: Generic Name Dose Route Start Last Admin Trade Name Freq PRN Reason Stop Dose Admin Acetaminophen 650 mg 06/13/21 02:07 Acetaminophen 325 Mg Tab PO Q6H PRN Pain MILD(1-3)/Fever >100.5/SHERMAN Hydrocodone Bitart/Acetaminophen 1 each 06/13/21 13:30 06/14/21 03:23 Hydrocodone/Acetaminophen 10-325mg Tab PO 1 each Q6HR PRN Administration Pain, Moderate (4-6) Clopidogrel Bisulfate 75 mg 06/14/21 10:00 06/14/21 09:30 Clopidogrel 75 Mg Tab PO 75 mg DAILY SHARI Administration Dextrose 0 ml 06/13/21 02:33 Dextrose 10% *Hypoglycemia IV DIRECT PRN Hypoglycemia Protocol Duloxetine HCl 30 mg 06/14/21 10:00 06/14/21 09:30 Duloxetine 30 Mg Cap PO 30 mg DAILY SHARI Administration Epoetin Diego-epbx 10,000 unit 06/13/21 10:00 Epoetin Diego-Epbx 10,000 Unit/1 Ml Vial IV PRESLEY PRN hemodialysis Escitalopram Oxalate 10 mg 06/14/21 10:00 06/14/21 09:30 Escitalopram 10 Mg Tab PO 10 mg DAILY SHARI Administration Famotidine 20 mg 06/13/21 22:00 06/13/21 21:59 Famotidine 20 Mg/2 Ml Inj IV 20 mg QHS SHARI Administration Heparin Sodium (Porcine) 5,000 unit 06/13/21 22:00 06/14/21 09:30 Heparin 5,000 Unit/1 Ml Vial SUB-Q 5,000 unit Q12HR SHARI Administration Sodium Chloride 1,000 mls @ 125 mls/hr 06/13/21 02:15 06/13/21 03:51 Nacl 0.9% 1000 Ml IV 125 mls/hr DIRECT SHARI Administration Cefepime HCl 1 gm in 100 mls @ 200 mls/hr 06/13/21 10:00 06/13/21 12:09 Cefepime/Ns 1 Gm/100 Ml IV Infused Q24HR SHARI Infusion Sodium Chloride 100 mls @ 999 mls/hr 06/13/21 10:00 Nacl 0.9% IV PRESLEY PRN Hypotension Insulin Human Lispro 0 unit 06/13/21 07:30 06/14/21 08:37 Insulin Lispro 100 Unit/Ml SUB-Q Not Given ACHS SHARI Protocol Magnesium Hydroxide 30 ml 06/13/21 02:07 Magnesium Hydroxide (Mom) Oral Liqd Udc PO Q4H PRN Constipation Metoclopramide HCl 5 mg 06/13/21 16:30 06/14/21 09:30 Metoclopramide 10 Mg/2 Ml Inj IV 5 mg ACHS SHARI Administration Metoclopramide HCl 5 mg 06/13/21 21:46 06/14/21 03:23 Metoclopramide 10 Mg Tab PO 5 mg Q6H PRN Administration Nausea And Vomiting Miscellaneous Medication 10 mg 06/14/21 10:00 Ropinirole Hcl [Ropinirole] PO DAILY SHARI Morphine Sulfate 2 mg 06/13/21 02:07 06/13/21 17:36 Morphine 2 Mg/1 Ml Inj IV 2 mg Q4H PRN Administration Pain, Moderate (4-6) Morphine Sulfate 4 mg 06/13/21 02:07 06/14/21 09:30 Morphine 4 Mg/1 Ml Inj IV 4 mg Q4H PRN Administration Pain , Severe (7-10) Multivitamins/Minerals 1 each 06/14/21 10:00 06/14/21 09:30 Multivitamins,Ther W-Minerals Tab PO 1 each QDAY SHARI Administration Ondansetron HCl 4 mg 06/13/21 02:07 06/13/21 17:32 Ondansetron 4 Mg/2 Ml Inj IV 4 mg Q8H PRN Administration Nausea And Vomiting Promethazine HCl 25 mg 06/13/21 13:30 Promethazine 25 Mg Tab PO Q6HR PRN Nausea Sodium Chloride 10 ml 06/13/21 10:00 06/14/21 09:30 Sodium Chloride 0.9% 10 Ml Flush Syringe IV 10 ml BID SHARI Administration Sodium Chloride 10 ml 06/13/21 02:07 Sodium Chloride 0.9% 10 Ml Flush Syringe IV PRN PRN LINE FLUSH
[2021-06-14] MEDS ORDERED: FOLIC ACID PO SCH (10:00)
[2021-06-14] MEDS ORDERED: MULTIVIT MIN PO SCH (10:00)
[2021-06-14] MEDS ORDERED: LUTEIN PO SCH (10:00)
[2021-06-14] MEDS ORDERED: ROPINIROLE HCL 5 MG PO SCH (10:00)
--- NOTE | 2021-06-14 10:23 | Progress Note ---
Assessment and Plan Assessment and plan: 55-year-old female with known history of end-stage renal disease on dialysisTuesdays, and Saturdays, diabetes mellitus, hypertension, history of DVT and gastroparesis brought into the emergency room via EMS for changes in mental status bradycardia and hypoglycemia.. Family members were said to have called EMS because patient was having some shortness of breath was becoming altered. According to family patient has been sick over the weekend and has been having some nausea and vomiting. Patient was said to be lethargic. Upon arrival in the emergency room patient was found to be hypothermic and had to be put on a Howard hugger. Patient missed her dialysis yesterday because she was having some nausea and vomiting which she had attributed to gastroparesis. Work-up in the emergency room today, significant findings were lactic acid of 3.3, BUN of 37 creatinine of 8.1. Patient became more alert and oriented after receiving IV fluid and after being placed on a Howard hugger in the emergency room. She was also started on empiric IV antibiotics. Assessment: (1) Accidental hypothermia in ED Current Visit: Yes Status: Acute Plan to address problem: Patient placed on a Howard hugger in the ED, resolved (2) Acute metabolic encephalopathy Current Visit: Yes Status: Acute Plan to address problem: With the hypothermia, supposedly hypoglycemic per EMS Lowest blood glucose 8os Sepsis work-up initiated Mental status improved (3) ESRD (end stage renal disease) on dialysis Current Visit: Yes Status: Acute Plan to address problem: Missed dialysis x1 due to nausea/vomiting consulted placed to forestry foreman for dialysis. Receiving dialysis as per schedule (4) rule out sepsis Current Visit: Yes Status: Acute Plan to address problem: Blood cultures negative. Not febrile, initially was hypothermic, normal WBC Procalcitonin borderline, 0.54. Lactic acid 3.3, resolved Patient placed on empiric IV antibiotics and IV fluid in ED and then discontinued Chronic nausea with occasional vomiting According to patient, she has chronic gastroparesis Takes Reglan and Protonix at home. Persistent nausea with occasional vomiting since admitted. Poor p.o. intake However no diarrhea, somewhat constipated Abdomen feels benign. Will consult GI. (5) Diabetes, A1c 4.8 Current Visit: No Status: Acute Plan to address problem: Patient placed on sliding scale insulin. We will monitor Accu-Cheks. No hyperglycemia (6) DVT prophylaxis Current Visit: Yes Status: Acute Plan to address problem: Patient placed on subcutaneous heparin. (7) Full code status Current Visit: Yes Status: Acute Plan to address problem: Patient is full code. Discussed with patient and the dialysis nursing staff. Time spent in direct patient care: 35 min History Interval history: Patient seen today during dialysis. Patient reports still having nausea which is persistent and some abdominal discomfort. Per patient, she has a diabetic gastroparesis for which she takes Reglan and Protonix at home. She has no diarrhea, still has some constipation. Dialysis nurse states that patient had about nausea and able to vomiting and was given Zofran during dialysis. No fever. Vital signs currently stable. Hospitalist Physical - Constitutional Vitals: Temp Pulse Resp BP Pulse Ox 98.3 F 69 18 148/67 100 06/14/21 07:49 06/14/21 10:00 06/14/21 07:49 06/14/21 07:49 06/14/21 07:49 General appearance: Present: no acute distress, other (Ill looking, uncomfortable likely with the nausea.) - EENT Eyes: Present: PERRL ENT: clear oral mucosa - Neck Neck: Present: supple - Respiratory Respiratory effort: normal Respiratory: bilateral: CTA - Cardiovascular Rhythm: regular - Extremities Extremities: No edema - Abdominal General gastrointestinal: soft, non-tender, non-distended, normal bowel sounds - Integumentary Integumentary: Absent: rash - Neurologic Neurologic: no focal deficits, moves all extremities Results - Labs CBC & Chem 7: 06/14/21 05:14 06/14/21 05:14 Labs: Laboratory Last Values WBC 7.5 K/mm3 (4.5-11.0) 06/14/21 05:14 RBC 3.09 M/mm3 (3.65-5.03) L 06/14/21 05:14 Hgb 9.9 gm/dl (10.1-14.3) L 06/14/21 05:14 Hct 30.6 % (30.3-42.9) 06/14/21 05:14 MCV 99 fl (79-97) H 06/14/21 05:14 MCH 32 pg (28-32) 06/14/21 05:14 MCHC 32 % (30-34) 06/14/21 05:14 RDW 16.6 % (13.2-15.2) H 06/14/21 05:14 Plt Count 367 K/mm3 (140-440) 06/14/21 05:14 Lymph % (Auto) 29.2 % (13.4-35.0) 06/14/21 05:14 [place] % (Auto) 12.5 % (0.0-7.3) H 06/14/21 05:14 Eos % (Auto) 2.9 % (0.0-4.3) 06/14/21 05:14 Baso % (Auto) 1.4 % (0.0-1.8) 06/14/21 05:14 Lymph # (Auto) 2.2 K/mm3 (1.2-5.4) 06/14/21 05:14 [place] # (Auto) 0.9 K/mm3 (0.0-0.8) H 06/14/21 05:14 Eos # (Auto) 0.2 K/mm3 (0.0-0.4) 06/14/21 05:14 Baso # (Auto) 0.1 K/mm3 (0.0-0.1) 06/14/21 05:14 Seg Neutrophils % 54.0 % (40.0-70.0) 06/14/21 05:14 Seg Neutrophils # 4.0 K/mm3 (1.8-7.7) 06/14/21 05:14 VBG pH 7.369 (7.320-7.420) 06/12/21 22:53 Sodium 141 mmol/L (137-145) 06/14/21 05:14 Potassium 3.6 mmol/L (3.6-5.0) 06/14/21 05:14 Chloride 103.1 mmol/L (98-107) 06/14/21 05:14 Carbon Dioxide 21 mmol/L (22-30) L 06/14/21 05:14 Anion Gap 21 mmol/L 06/14/21 05:14 BUN 41 mg/dL (7-17) H 06/14/21 05:14 Creatinine 8.6 mg/dL (0.6-1.2) H 06/14/21 05:14 Estimated GFR 6 ml/min 06/14/21 05:14 BUN/Creatinine Ratio 5 % 06/14/21 05:14 Glucose 82 mg/dL (65-100) 06/14/21 05:14 Lactic Acid 0.60 mmol/L (0.7-2.0) L 06/14/21 05:14 Calcium 8.8 mg/dL (8.4-10.2) 06/14/21 05:14 Phosphorus 4.30 mg/dL (2.5-4.5) 06/12/21 22:53 Magnesium 2.20 mg/dL (1.7-2.3) 06/12/21 22:53 Total Bilirubin 0.50 mg/dL (0.1-1.2) 06/12/21 22:53 Direct Bilirubin < 0.2 mg/dL (0-0.2) 06/12/21 22:53 Indirect Bilirubin 0.3 mg/dL 06/12/21 22:53 AST 23 units/L (5-40) 06/12/21 22:53 ALT 7 units/L (7-56) 06/12/21 22:53 Alkaline Phosphatase 53 units/L (35-129) 06/12/21 22:53 C-Reactive Protein 0.10 mg/dL (0.00-1.30) 06/13/21 16:15 Total Protein 6.4 g/dL (6.3-8.2) 06/12/21 22:53 Albumin 3.8 g/dL (3.9-5) L 06/12/21 22:53 Albumin/Globulin Ratio 1.5 % 06/12/21 22:53 Lipase 15 units/L (13-60) 06/12/21 22:53 Procalcitonin 0.54 ng/mL (<0.15) 06/13/21 16:15 TSH 0.771 mlU/mL (0.270-4.200) 06/12/21 22:53 Hepatitis A IgM Ab Non-reactive (NonReactive) 06/13/21 Unknown Hep Bs Antigen Non-reactive (Negative) 06/13/21 Unknown Hep B Core IgM Ab Non-reactive (NonReactive) 06/13/21 Unknown Hepatitis C Antibody Non-reactive (NonReactive) 06/13/21 Unknown Microbiology: Microbiology 06/12/21 22:53 Peripheral/Venous Blood Culture - Preliminary NO GROWTH AFTER 24 HOURS 06/12/21 23:10 Peripheral/Venous Blood Culture - Preliminary NO GROWTH AFTER 24 HOURS Active Medications - Current Medications Current Medications: Generic Name Dose Route Start Last Admin Trade Name Freq PRN Reason Stop Dose Admin Acetaminophen 650 mg 06/13/21 02:07 Acetaminophen 325 Mg Tab PO Q6H PRN Pain MILD(1-3)/Fever >100.5/SHERMAN Hydrocodone Bitart/Acetaminophen 1 each 06/13/21 13:30 06/14/21 03:23 Hydrocodone/Acetaminophen 10-325mg Tab PO 1 each Q6HR PRN Administration Pain, Moderate (4-6) Clopidogrel Bisulfate 75 mg 06/14/21 10:00 06/14/21 09:30 Clopidogrel 75 Mg Tab PO 75 mg DAILY SHARI Administration Dextrose 0 ml 06/13/21 02:33 Dextrose 10% *Hypoglycemia IV DIRECT PRN Hypoglycemia Protocol Duloxetine HCl 30 mg 06/14/21 10:00 06/14/21 09:30 Duloxetine 30 Mg Cap PO 30 mg DAILY SHARI Administration Epoetin Diego-epbx 10,000 unit 06/13/21 10:00 Epoetin Diego-Epbx 10,000 Unit/1 Ml Vial IV PRESLEY PRN hemodialysis Escitalopram Oxalate 10 mg 06/14/21 10:00 06/14/21 09:30 Escitalopram 10 Mg Tab PO 10 mg DAILY SHARI Administration Famotidine 20 mg 06/13/21 22:00 06/13/21 21:59 Famotidine 20 Mg/2 Ml Inj IV 20 mg QHS SHARI Administration Heparin Sodium (Porcine) 5,000 unit 06/13/21 22:00 06/14/21 09:30 Heparin 5,000 Unit/1 Ml Vial SUB-Q 5,000 unit Q12HR SHARI Administration Sodium Chloride 1,000 mls @ 125 mls/hr 06/13/21 02:15 06/13/21 03:51 Nacl 0.9% 1000 Ml IV 125 mls/hr DIRECT SHARI Administration Cefepime HCl 1 gm in 100 mls @ 200 mls/hr 06/13/21 10:00 06/13/21 12:09 Cefepime/Ns 1 Gm/100 Ml IV Infused Q24HR SHARI Infusion Sodium Chloride 100 mls @ 999 mls/hr 06/13/21 10:00 Nacl 0.9% IV PRESLEY PRN Hypotension Insulin Human Lispro 0 unit 06/13/21 07:30 06/14/21 08:37 Insulin Lispro 100 Unit/Ml SUB-Q Not Given ACHS [facility] Protocol Magnesium Hydroxide 30 ml 06/13/21 02:07 Magnesium Hydroxide (Mom) Oral Liqd Udc PO Q4H PRN Constipation Metoclopramide HCl 5 mg 06/13/21 16:30 06/14/21 09:30 Metoclopramide 10 Mg/2 Ml Inj IV 5 mg ACHS SHARI Administration Metoclopramide HCl 5 mg 06/13/21 21:46 06/14/21 03:23 Metoclopramide 10 Mg Tab PO 5 mg Q6H PRN Administration Nausea And Vomiting Miscellaneous Medication 10 mg 06/14/21 10:00 Ropinirole Hcl [Ropinirole] PO DAILY SHARI Morphine Sulfate 2 mg 06/13/21 02:07 06/13/21 17:36 Morphine 2 Mg/1 Ml Inj IV 2 mg Q4H PRN Administration Pain, Moderate (4-6) Morphine Sulfate 4 mg 06/13/21 02:07 06/14/21 09:30 Morphine 4 Mg/1 Ml Inj IV 4 mg Q4H PRN Administration Pain , Severe (7-10) Multivitamins/Minerals 1 each 06/14/21 10:00 06/14/21 09:30 Multivitamins,Ther W-Minerals Tab PO 1 each QDAY SHARI Administration Ondansetron HCl 4 mg 06/13/21 02:07 06/13/21 17:32 Ondansetron 4 Mg/2 Ml Inj IV 4 mg Q8H PRN Administration Nausea And Vomiting Promethazine HCl 25 mg 06/13/21 13:30 Promethazine 25 Mg Tab PO Q6HR PRN Nausea Sodium Chloride 10 ml 06/13/21 10:00 06/14/21 09:30 Sodium Chloride 0.9% 10 Ml Flush Syringe IV 10 ml BID SHARI Administration Sodium Chloride 10 ml 06/13/21 02:07 Sodium Chloride 0.9% 10 Ml Flush Syringe IV PRN PRN LINE FLUSH Nutrition/Malnutrition Assess - Dietary Evaluation Nutrition/Malnutrition Findings: Nutrition Notes Start: 06/13/21 12:47 Freq: Status: Active Protocol: Document 06/13/21 12:47 ANEL (Rec: 06/13/21 12:49 ANEL [id number]) Nutrition Notes Need for Assessment generated from: MD Order,Education Initial or Follow up Brief Note Current Diagnosis CKD (stage V CKD),Diabetes, Sepsis,Hypertension Other Pertinent Diagnosis AMS, Gastroparesis Current Diet Cardiac/Consistent CHO Labs/Tests BG 332 Subjective/Other Information RD consulted for diet education. Pt in ED at this time. Burn Absent Trauma Absent GI Symptoms Nausea,Vomiting Minimum of two criteria No Nutrition Intervention Follow-Up By: 06/16/21 Additional Comments F/U: transfer to medical floor , diet education needs (CHO- controlled), intakes
[2021-06-14] MEDS: ONDANSETRON 4 MG/2 ML INJ IV PRN (14:20)
[2021-06-14] MEDS: CEFEPIME/NS 1 GM/100 ML 1 GM/100 ML BAG IV SCH (14:23)
--- NOTE | 2021-06-14 14:25 | Progress Note ---
Assessment and Plan Sepsis with shock Hypothermia Lactic acidosis End-stage renal disease on Dialysis Acute toxic metabolic encephalopathy DM II with complications Gastroparesis Hyponatremia Hypertension H/O DVT - de-escalate AB's after 3 days of negative cultures (CRP, Procalcitonin unremarkable and clinically improving) - HD/UF per nephrology prescription for toxin and volume clearance - supplemental oxygen to keep O2 sats > 90% - bronchodilators (MICHELLE) with pulm hygiene per RT - continue to avoid nephrotoxins, renally dose all medications - mobility protocols to prevent pressure ulcers - PT/OT as tolerated - Wound care per RN/WCT - continue accuchecks with glycemic control per SSI for target blood glucose < 180 mg/dL - tobacco abstinence counseled at the bedside - home oxygen evaluation at discharge - GI & VTE prophylaxis - Flu & pneumovax per protocol - prn analgesia per pain score - continue other care per attending / other consultants ... re-evaluate in am & prn Subjective Date of service: 06/14/21 Principal diagnosis: Shock; Hypothermia; Lactic acidosis; ESRD on Dialysis; AMS; DM II; H/O DVT Interval history: Patient is seen today for: Shock; Hypothermia; Lactic acidosis; ESRD on Dialysis; AMS; DM II; H/O DVT Seen and examined at bedside; 24hour events reviewed; nursing and respiratory care staff consulted; no adverse overnight events reported to me; resting in bed; feels better; nausea improved and no vomiting; no longer agitated; afebrile Objective Vital Signs - 12hr 06/14/21 06/14/21 06/14/21 03:29 07:49 10:00 Temperature 98.1 F 98.3 F Pulse Rate 72 68 69 Respiratory 14 18 Rate Blood Pressure 153/75 148/67 O2 Sat by Pulse 98 100 Oximetry O2 Sat by Pulse Oximetry [ Bilateral Throughout] 06/14/21 11:42 Temperature 93 F L Pulse Rate 72 Respiratory 18 Rate Blood Pressure 154/79 O2 Sat by Pulse Oximetry O2 Sat by Pulse 100 Oximetry [ Bilateral Throughout] Constitutional: no acute distress Eyes: non-icteric ENT: oropharynx moist Neck: supple, no lymphadenopathy, no JVD Effort: mildly labored Ascultation: Bilateral: rhonchi Percussion: Bilateral: not dull Cardiovascular: regular rate and rhythm Gastrointestinal: normoactive bowel sounds, soft, non-tender, non-distended Integumentary: rash Extremities: no cyanosis, no edema, pulses normal, no ischemia or petechiae Neurologic: non-focal exam, pupils equal and round, CN II-XII normal, motor strength normal and Psychiatric: mood appropriate, affect normal CBC and BMP: 06/14/21 05:14 06/14/21 05:14 Abnormal lab findings: Abnormal Labs 06/12/21 06/12/21 06/12/21 22:53 22:53 22:53 RBC 3.17 L Hgb 9.9 L MCV 98 H RDW 16.3 H Lymph % (Auto) 7.9 L Amelia % (Auto) 9.2 H Lymph # (Auto) 0.4 L [place] # (Auto) Seg Neutrophils % 81.8 H Sodium 135 L Chloride 94.8 L Carbon Dioxide BUN 37 H Creatinine 8.1 H Glucose 332 H Lactic Acid 3.30 H* Albumin 3.8 L 06/13/21 06/13/21 06/14/21 03:47 16:15 05:14 RBC 3.09 L Hgb 9.9 L MCV 99 H RDW 16.6 H Lymph % (Auto) Amelia % (Auto) 12.5 H Lymph # (Auto) Amelia # (Auto) 0.9 H Seg Neutrophils % Sodium Chloride Carbon Dioxide BUN 39 H Creatinine 8.9 H Glucose Lactic Acid 2.40 H* Albumin 06/14/21 06/14/21 05:14 05:14 RBC Hgb MCV RDW Lymph % (Auto) Amelia % (Auto) Lymph # (Auto) Amelia # (Auto) Seg Neutrophils % Sodium Chloride Carbon Dioxide 21 L BUN 41 H Creatinine 8.6 H Glucose Lactic Acid 0.60 L Albumin Allied health notes reviewed: nursing
--- NOTE | 2021-06-14 15:11 | XRay Report ---
CHEST 1 VIEW INDICATION / CLINICAL INFORMATION: End-stage renal disease dyspnea. COMPARISON: None available. FINDINGS: SUPPORT DEVICES: None. HEART / MEDIASTINUM: No significant abnormality. LUNGS / PLEURA: No significant pulmonary or pleural abnormality. No pneumothorax. ADDITIONAL FINDINGS: Vascular stents superior vena cava and right brachial/axillary vein. IMPRESSION: 1. No active cardiopulmonary disease. Signer Name: Eagle Dee II, MD Signed: 06/12/2021 10:46 PM Workstation Name: [id number]
[2021-06-14] MEDS: hydrALAZINE 100 MG TAB PO SCH (20:45)
[2021-06-14] MEDS: FAMOTIDINE 20 MG/2 ML INJ IV SCH (21:32)
[2021-06-14] MEDS: ACETAMINOPHEN 325 MG TAB PO PRN (21:33)
[2021-06-14] MEDS: amLODIPine 10 MG TAB PO SCH (21:33)
[2021-06-15] MEDS: ONDANSETRON 4 MG/2 ML INJ IV PRN (01:04)
[2021-06-15] MEDS: ACETAMINOPHEN 325 MG TAB PO PRN (03:30)
--- NOTE | 2021-06-15 08:19 | Cat Scan Report ---
CT HEAD WITHOUT CONTRAST INDICATION / CLINICAL INFORMATION: altered mental status. TECHNIQUE: CT of the head was performed without administration of intravenous contrast. All CT scans at this location are performed using CT dose reduction for ALARA by means of automated exposure contr ol. COMPARISON: None available. FINDINGS: CEREBRAL PARENCHYMA: No significant abnormality. No acute territorial infarct. HEMORRHAGE: None. EXTRA-AXIAL SPACES: Normal in size and morphology for the patient's age. VENTRICULAR SYSTEM: Normal in size and morphology for the patient's age. MIDLINE SHIFT / HERNIATION: None. CEREBELLUM / BRAINSTEM: No significant abnormality. ORBITS: Normal as visualized. SOFT TISSUES: No significant abnormality. SKULL: No significant abnormality. PARANASAL SINUSES / MASTOID AIR CELLS: Normal as visualized. ADDITIONAL FINDINGS: None. IMPRESSION: 1. No acute intracranial abnormality. Signer Name: Eagle Dee II, MD Signed: 06/13/2021 2:22 AM Workstation Name: [id number]
[2021-06-15] MEDS: METOCLOPRAMIDE 10 MG/2 ML INJ IV SCH ×4 (09:11→17:14)
[2021-06-15] MEDS: MULTIVITAMINS,THER W-MINERALS TAB PO SCH (09:11)
[2021-06-15] MEDS: HEPARIN 5,000 UNIT/1 ML VIAL SUB-Q SCH (09:12)
[2021-06-15] MEDS: hydrALAZINE 100 MG TAB PO SCH ×2 (09:12→16:50)
[2021-06-15] MEDS: amLODIPine 10 MG TAB PO SCH (09:12)
[2021-06-15] MEDS: ESCITALOPRAM 10 MG TAB PO SCH (09:12)
[2021-06-15] MEDS: CLOPIDOGREL 75 MG TAB PO SCH (09:12)
[2021-06-15] MEDS: DULoxetine 30 MG CAP PO SCH (09:12)
[2021-06-15] MEDS: INSULIN LISPRO 100 UNIT/ML SUB-Q SCH ×3 (09:13→16:49)
[2021-06-15] MEDS: CEFEPIME/NS 1 GM/100 ML 1 GM/100 ML BAG IV SCH (09:14)
--- NOTE | 2021-06-15 09:46 | Progress Note ---
Assessment and Plan Impression * End-stage renal disease on maintenance hemodialysis * Sepsis * Hypothermia * Hypertension * Diabetes * Anemia secondary to ESRD * Lactic acidosis Recommendations * Patient had uneventful hemodialysis yesterday * Continue dialysis on TTS schedule * IV antibiotic and treatment of sepsis as per primary team * Epogen with dialysis * Adjust diet and meds for ESRD state * No IV, BP or venipuncture in her access arm * Avoid nephrotoxins * Monitor fluid status and electrolytes closely Subjective Date of service: 06/15/21 Principal diagnosis: Shock; Hypothermia; Lactic acidosis; ESRD on Dialysis; AMS; DM II; H/O DVT Interval history: Patient is comfortable today. Denies any shortness of breath. No nausea vomiting or diarrhea. Objective - Vital Signs Vital signs: Vital Signs - 12hr 06/14/21 06/14/21 06/15/21 22:00 23:45 04:00 Temperature 97.2 F L Pulse Rate 85 78 Respiratory 16 18 Rate Blood Pressure 126/59 O2 Sat by Pulse 99 94 Oximetry 06/15/21 06/15/21 06/15/21 05:09 07:37 08:19 Temperature 98.0 F 97.2 F L Pulse Rate 79 76 Respiratory 16 18 Rate Blood Pressure 159/76 155/69 O2 Sat by Pulse 98 100 94 Oximetry - General Appearance General appearance: well-developed, well-nourished, appears stated age EENT: PERRL, mucous membranes moist Neck: no JVD, no thyromegaly, no carotid bruit, supple Respiratory: Present: Clear to Ascultation Cardiology: regular, normal heart rate, S1S2, no murmurs Gastrointestinal: normal, normoactive bowel sounds Integumentary: other (No edema. AV fistula right upper arm. Good bruit and thrill.) - Lab 06/14/21 05:14 06/14/21 05:14 Most recent lab results Calcium 8.8 mg/dL (8.4-10.2) 06/14/21 05:14 Phosphorus 4.30 mg/dL (2.5-4.5) 06/12/21 22:53 Magnesium 2.20 mg/dL (1.7-2.3) 06/12/21 22:53 Medications & Allergies - Medications Allergies/Adverse Reactions: Allergies aspirin Allergy (Verified 12/21/16 20:49) Hives Home Medications: Home Medications Medication Instructions Recorded Confirmed Last Taken Type cloNIDine [Catapres] 0.2 mg PO TID 12/22/16 06/14/21 06/12/21 History hydrALAZINE [Apresoline TAB] 100 mg PO TID 12/22/16 06/14/21 06/12/21 History Metoclopramide [Reglan] 10 mg PO QDAY 06/14/21 06/14/21 06/12/21 History amLODIPine [Norvasc] 10 mg PO DAILY 06/14/21 06/14/21 06/12/21 History Active Medications: Generic Name Dose Route Start Last Admin Trade Name Freq PRN Reason Stop Dose Admin Acetaminophen 650 mg 06/13/21 02:07 06/15/21 03:30 Acetaminophen 325 Mg Tab PO 650 mg Q6H PRN Administration Pain MILD(1-3)/Fever >100.5/SHERMAN Amlodipine Besylate 10 mg 06/14/21 19:00 06/15/21 09:12 Amlodipine 10 Mg Tab PO 10 mg DAILY SHARI Administration Clopidogrel Bisulfate 75 mg 06/14/21 10:00 06/15/21 09:12 Clopidogrel 75 Mg Tab PO 75 mg DAILY SHARI Administration Dextrose 0 ml 06/13/21 02:33 Dextrose 10% *Hypoglycemia IV DIRECT PRN Hypoglycemia Protocol Duloxetine HCl 30 mg 06/14/21 10:00 06/15/21 09:12 Duloxetine 30 Mg Cap PO 30 mg DAILY SHARI Administration Epoetin Diego-epbx 10,000 unit 06/13/21 10:00 06/14/21 15:29 Epoetin Diego-Epbx 10,000 Unit/1 Ml Vial IV 10,000 unit PRESLEY PRN Administration hemodialysis Escitalopram Oxalate 10 mg 06/14/21 10:00 06/15/21 09:12 Escitalopram 10 Mg Tab PO 10 mg DAILY SHARI Administration Famotidine 20 mg 06/13/21 22:00 06/14/21 21:32 Famotidine 20 Mg/2 Ml Inj IV 20 mg QHS SHARI Administration Heparin Sodium (Porcine) 5,000 unit 06/13/21 22:00 06/15/21 09:12 Heparin 5,000 Unit/1 Ml Vial SUB-Q 5,000 unit Q12HR SHARI Administration Hydralazine HCl 100 mg 06/14/21 20:00 06/15/21 09:12 Hydralazine 100 Mg Tab PO 100 mg TID SHARI Administration Sodium Chloride 1,000 mls @ 125 mls/hr 06/13/21 02:15 06/13/21 03:51 Nacl 0.9% 1000 Ml IV 125 mls/hr DIRECT SHARI Administration Cefepime HCl 1 gm in 100 mls @ 200 mls/hr 06/13/21 10:00 06/15/21 09:14 Cefepime/Ns 1 Gm/100 Ml IV 06/17/21 10:29 200 mls/hr Q24HR SHARI Administration Sodium Chloride 100 mls @ 999 mls/hr 06/13/21 10:00 Nacl 0.9% IV PRESLEY PRN Hypotension Insulin Human Lispro 0 unit 06/13/21 07:30 06/15/21 09:13 Insulin Lispro 100 Unit/Ml SUB-Q Not Given ACHS [facility] Protocol Magnesium Hydroxide 30 ml 06/13/21 02:07 Magnesium Hydroxide (Mom) Oral Liqd Udc PO Q4H PRN Constipation Metoclopramide HCl 5 mg 06/13/21 16:30 06/15/21 09:11 Metoclopramide 10 Mg/2 Ml Inj IV 5 mg ACHS SHARI Administration Metoclopramide HCl 5 mg 06/13/21 21:46 06/14/21 03:23 Metoclopramide 10 Mg Tab PO 5 mg Q6H PRN Administration Nausea And Vomiting Miscellaneous Medication 10 mg 06/14/21 10:00 Ropinirole Hcl [Ropinirole] PO DAILY [facility] Multivitamins/Minerals 1 each 06/14/21 10:00 06/15/21 09:11 Multivitamins,Ther W-Minerals Tab PO 1 each QDAY SHARI Administration Ondansetron HCl 4 mg 06/13/21 02:07 06/15/21 01:04 Ondansetron 4 Mg/2 Ml Inj IV 4 mg Q8H PRN Administration Nausea And Vomiting Promethazine HCl 25 mg 06/13/21 13:30 Promethazine 25 Mg Tab PO Q6HR PRN Nausea Sodium Chloride 10 ml 06/13/21 10:00 06/15/21 09:14 Sodium Chloride 0.9% 10 Ml Flush Syringe IV 10 ml BID SHARI Administration Sodium Chloride 10 ml 06/13/21 02:07 Sodium Chloride 0.9% 10 Ml Flush Syringe IV PRN PRN LINE FLUSH
[2021-06-15] MEDS ORDERED: MORPHINE 2 MG/1 ML INJ IV SCH (11:30)
--- NOTE | 2021-06-15 13:30 | Progress Note ---
Assessment and Plan Sepsis with shock Hypothermia Lactic acidosis End-stage renal disease on Dialysis Acute toxic metabolic encephalopathy DM II with complications Gastroparesis Hyponatremia Hypertension H/O DVT - de-escalate AB's after 3 days of negative cultures (CRP, Procalcitonin unremarkable and clinically improving) - HD/UF per nephrology prescription for toxin and volume clearance - supplemental oxygen to keep O2 sats > 90% - bronchodilators (MICHELLE) with pulm hygiene per RT - continue to avoid nephrotoxins, renally dose all medications - mobility protocols to prevent pressure ulcers - PT/OT as tolerated - Wound care per RN/WCT - continue accuchecks with glycemic control per SSI for target blood glucose < 180 mg/dL - tobacco abstinence counseled at the bedside - home oxygen evaluation at discharge - GI & VTE prophylaxis - Flu & pneumovax per protocol - prn analgesia per pain score - continue other care per attending / other consultants ... re-evaluate in am & prn Subjective Date of service: 06/15/21 Principal diagnosis: Shock; Hypothermia; Lactic acidosis; ESRD on Dialysis; AMS; DM II; H/O DVT Interval history: Patient is seen today for: Shock; Hypothermia; Lactic acidosis; ESRD on Dialysis; AMS; DM II; H/O DVT Seen and examined at bedside; 24hour events reviewed; nursing and respiratory care staff consulted; no adverse overnight events reported to me; resting in bed; Objective Vital Signs - 12hr 06/15/21 06/15/21 06/15/21 04:00 05:09 07:37 Temperature 98.0 F 97.2 F L Pulse Rate 79 76 Respiratory 18 16 18 Rate Blood Pressure 159/76 155/69 O2 Sat by Pulse 94 98 100 Oximetry 06/15/21 08:19 Temperature Pulse Rate Respiratory Rate Blood Pressure O2 Sat by Pulse 94 Oximetry Constitutional: no acute distress Eyes: non-icteric ENT: oropharynx moist Neck: supple, no lymphadenopathy, no JVD Effort: mildly labored Ascultation: Bilateral: rhonchi Percussion: Bilateral: not dull Cardiovascular: regular rate and rhythm Gastrointestinal: normoactive bowel sounds, soft, non-tender, non-distended Integumentary: rash Extremities: no cyanosis, no edema, pulses normal, no ischemia or petechiae Neurologic: non-focal exam, pupils equal and round, CN II-XII normal, motor strength normal and Psychiatric: mood appropriate, affect normal CBC and BMP: 06/14/21 05:14 06/14/21 05:14 Abnormal lab findings: Abnormal Labs 06/12/21 06/12/21 06/12/21 22:53 22:53 22:53 RBC 3.17 L Hgb 9.9 L MCV 98 H RDW 16.3 H Lymph % (Auto) 7.9 L Hill % (Auto) 9.2 H Lymph # (Auto) 0.4 L [place] # (Auto) Seg Neutrophils % 81.8 H Sodium 135 L Chloride 94.8 L Carbon Dioxide BUN 37 H Creatinine 8.1 H Glucose 332 H POC Glucose Lactic Acid 3.30 H* Albumin 3.8 L 06/13/21 06/13/21 06/14/21 03:47 16:15 05:14 RBC 3.09 L Hgb 9.9 L MCV 99 H RDW 16.6 H Lymph % (Auto) Hill % (Auto) 12.5 H Lymph # (Auto) [place] # (Auto) 0.9 H Seg Neutrophils % Sodium Chloride Carbon Dioxide BUN 39 H Creatinine 8.9 H Glucose POC Glucose Lactic Acid 2.40 H* Albumin 06/14/21 06/14/21 06/15/21 05:14 05:14 11:32 RBC Hgb MCV RDW Lymph % (Auto) Hill % (Auto) Lymph # (Auto) [place] # (Auto) Seg Neutrophils % Sodium Chloride Carbon Dioxide 21 L BUN 41 H Creatinine 8.6 H Glucose POC Glucose 106 H Lactic Acid 0.60 L Albumin Allied health notes reviewed: nursing
--- NOTE | 2021-06-15 18:42 | Gastroenterology Consultation ---
History of Present Illness - Reason for Consult Consult date: 06/15/21 n/v Requesting physician: KIMBERLI ALAMO - History of Present Illness The patient is a 55 yo aaf presented with ams, bradycardia, hypoglycemia and hypothermia. h/o esrd and diabetes. pt awake/alert at time of exam. has had improvement in sx's/condition during hospitalization. reports h/o james roparesis, and has had "flares" in the past attributed to this with n/v/abd pain. reports improved sx's at time of exam. tolerating clears, denies abd pain. Past History Past Medical History: diabetes, dialysis, ESRD, hypertension, other (spinal stenosis, Hemodialysis (Tues, Thurs, sat)) Past Surgical History: cholecystectomy, Social history: smoking (Former smoker) Family history: no significant family history Medications and Allergies Allergies Allergy/AdvReac Type Severity Reaction Status Date / Time aspirin Allergy Hives Verified 12/21/16 20:49 Home Medications Medication Instructions Recorded Confirmed Last Taken Type cloNIDine [Catapres] 0.2 mg PO TID 12/22/16 06/14/21 06/12/21 History hydrALAZINE [Apresoline TAB] 100 mg PO TID 12/22/16 06/14/21 06/12/21 History Metoclopramide [Reglan] 10 mg PO QDAY 06/14/21 06/14/21 06/12/21 History amLODIPine [Norvasc] 10 mg PO DAILY 06/14/21 06/14/21 06/12/21 History Active Meds: Active Medications Acetaminophen (Acetaminophen 325 Mg Tab) 650 mg PO Q6H PRN PRN Reason: Pain MILD(1-3)/Fever >100.5/SHERMAN Last Admin: 06/15/21 03:30 Dose: 650 mg Amlodipine Besylate (Amlodipine 10 Mg Tab) 10 mg PO DAILY [facility] Last Admin: 06/15/21 09:12 Dose: 10 mg Clopidogrel Bisulfate (Clopidogrel 75 Mg Tab) 75 mg PO DAILY [facility] Last Admin: 06/15/21 09:12 Dose: 75 mg Dextrose (Dextrose 10% *Hypoglycemia) 0 ml IV DIRECT PRN; Protocol PRN Reason: Hypoglycemia Duloxetine HCl (Duloxetine 30 Mg Cap) 30 mg PO DAILY [facility] Last Admin: 06/15/21 09:12 Dose: 30 mg Epoetin Diego-epbx (Epoetin Diego-Epbx 10,000 Unit/1 Ml Vial) 10,000 unit IV PRESLEY PRN PRN Reason: hemodialysis Last Admin: 06/14/21 15:29 Dose: 10,000 unit Escitalopram Oxalate (Escitalopram 10 Mg Tab) 10 mg PO DAILY [facility] Last Admin: 06/15/21 09:12 Dose: 10 mg Famotidine (Famotidine 20 Mg/2 Ml Inj) 20 mg IV QHS [facility] Last Admin: 06/14/21 21:32 Dose: 20 mg Heparin Sodium (Porcine) (Heparin 5,000 Unit/1 Ml Vial) 5,000 unit SUB-Q Q12HR [facility] Last Admin: 06/15/21 09:12 Dose: 5,000 unit Hydralazine HCl (Hydralazine 100 Mg Tab) 100 mg PO TID [facility] Last Admin: 06/15/21 16:50 Dose: 100 mg Sodium Chloride (Nacl 0.9% 1000 Ml) 1,000 mls @ 125 mls/hr IV DIRECT [facility] Last Admin: 06/13/21 03:51 Dose: 125 mls/hr Cefepime HCl (Cefepime/Ns 1 Gm/100 Ml) 1 gm in 100 mls @ 200 mls/hr IV Q24HR [facility] Stop: 06/17/21 10:29 Last Admin: 06/15/21 09:14 Dose: 200 mls/hr Sodium Chloride (Nacl 0.9%) 100 mls @ 999 mls/hr IV PRESLEY PRN PRN Reason: Hypotension Insulin Human Lispro (Insulin Lispro 100 Unit/Ml) 0 unit SUB-Q [facility]; Protocol Last Admin: 06/15/21 16:49 Dose: Not Given Magnesium Hydroxide (Magnesium Hydroxide (Mom) Oral Liqd Udc) 30 ml PO Q4H PRN PRN Reason: Constipation Metoclopramide HCl (Metoclopramide 10 Mg/2 Ml Inj) 5 mg IV [facility] Last Admin: 06/15/21 17:14 Dose: Not Given Metoclopramide HCl (Metoclopramide 10 Mg Tab) 5 mg PO Q6H PRN PRN Reason: Nausea And Vomiting Last Admin: 06/14/21 03:23 Dose: 5 mg Miscellaneous Medication (Ropinirole Hcl [Ropinirole]) 10 mg PO DAILY [facility] Multivitamins/Minerals (Multivitamins,Ther W-Minerals Tab) 1 each PO QDAY [facility] Last Admin: 06/15/21 09:11 Dose: 1 each Ondansetron HCl (Ondansetron 4 Mg/2 Ml Inj) 4 mg IV Q8H PRN PRN Reason: Nausea And Vomiting Last Admin: 06/15/21 01:04 Dose: 4 mg Promethazine HCl (Promethazine 25 Mg Tab) 25 mg PO Q6HR PRN PRN Reason: Nausea Sodium Chloride (Sodium Chloride 0.9% 10 Ml Flush Syringe) 10 ml IV BID [facility] Last Admin: 06/15/21 09:14 Dose: 10 ml Sodium Chloride (Sodium Chloride 0.9% 10 Ml Flush Syringe) 10 ml IV PRN PRN PRN Reason: LINE FLUSH Reviewed/updated patient's home and current medications Review of Systems - Review of Systems All systems: negative (per HPI) Exam - Constitutional Vital Signs: Temp Pulse Resp BP Pulse Ox 97.9 F 82 18 139/66 97 06/15/21 16:03 06/15/21 16:03 06/15/21 16:03 06/15/21 16:03 06/15/21 16:03 General appearance: no acute distress - EENT Eyes: PERRL, EOM intact - Respiratory Respiratory effort: normal Respiratory: bilateral: CTA - Cardiovascular Rhythm: regular Heart Sounds: Present: S1 & S2 - Gastrointestinal General gastrointestinal: Present: soft, non-tender, non-distended - Labs CBC & Chem 7: 06/14/21 05:14 06/14/21 05:14 Lab Results: Laboratory Results - last 24 hr 06/14/21 06/15/21 06/15/21 23:47 07:38 11:32 POC Glucose 84 83 106 H 06/15/21 15:52 POC Glucose 95 Assessment and Plan 1. Nausea/vomiting and abdominal pain 2. History of gastroparesis per history -pt reports improved/resolved n/v sx's at time of exam. tolerating clears. given improved gi symptoms, does not need further work-up from gi stand point at present time unless change in clinical course. she was persistent to go home at time of rounds and explained that would be decided by her primary physician. will sign off, please call as needed or with questions.
--- NOTE | 2021-06-15 20:12 | Discharge Summary ---
Providers - Providers Date of Admission: 06/13/21 02:09 Date of discharge: 06/15/21 Attending physician: PETE ALAMO MD 06/13/21 02:09 Consult to Dietitian/Nutrition [CONS] Routine Physician Instructions: Reason For Exam: Reason for Consult: Diet education Consult to Physician [CONS] Routine Comment: Consulting Provider: GENE REZA Physician Instructions: Reason For Exam: Sepsis, Hypothermia 06/13/21 03:47 Consult to Physician [CONS] Routine Comment: Consulting Provider: FERNANDO LAUREANO Physician Instructions: Reason For Exam: ESRD ON DIALYSIS 06/15/21 09:43 Consult to Physician [CONS] Routine Comment: Consulting Provider: NICOLÁS CASTAÑEDA Physician Instructions: Reason For Exam: Intractable nausea and vomiting, abdominal pain Primary care physician: DONNA MANUEL Hospitalization Condition: Stable Hospital course: 55-year-old female with known history of end-stage renal disease on dialysisTuesdays, and Saturdays, diabetes mellitus, hypertension, history of DVT and gastroparesis with nausea on Reglan brought into the emergency room via EMS for changes in mental status, bradycardia and hypoglycemia. According to family patient has been sick over the weekend and has been having some nausea and vomiting. Patient was said to be lethargic. Upon arrival in the emergency room patient was found to be hypothermic and had to be put on a Howard hugger. Patient missed her dialysis yesterday because she was having some nausea and vomiting which she had attributed to gastroparesis. Work-up in the emergency room today, significant findings were lactic acid of 3.3, BUN of 37 creatinine of 8.1. Patient became more alert and oriented after receiving IV fluid and after being placed on a Howard hugger in the emergency room. She was also started on empiric IV antibiotics. Hospital course patient reported that she was taking glipizide twice daily even though this is not included in her home med list. Patient was monitored off oral agents and insulin. Blood glucose ranged only from 85-100 and did not require any insulin therapy. Hemoglobin A1c was 4.8. Patient was advised to stop taking her glipizide and adjust monitor blood work was before each meal and to have follow-up with her PCP in a week. Patient continued to have persistent nausea and repeated vomiting for which she received Zofran Reglan. Patient stated that this is a higher gastroparesis flareup. She did not have diarrhea and states she has some constipation. Her abdomen was always benign to feel. Sepsis work-up was negative. Lactic acidosis likely due to hypoglycemic episode and missing her dialysis as well as dehydration. Did not have fever or leukocytosis. Procalcitonin was borderline. With the day of discharge, her nausea slowly improved and that she felt like she is good to go home. Patient was seen by gastroenterology on the day of discharge and recommended no further work-up since her symptoms resolving. Discharge diagnosis: Hypoglycemic episode with altered mental status/encephalopathy, hypothermia and lactic acidosis Sepsis work-up negative Hemoglobin A1c 4.8 with history of diabetes Patient advised to stop glipizide due to hypoglycemia and low A1c Persistent nausea and vomiting likely from exacerbation of chronic gastroparesis ESRD on hemodialysis with euvolemia Disposition: 01 HOME / SELF CARE / HOMELESS Final Discharge Diagnosis (Prints w/discharge instructions): Hypoglycemic episode with altered mental status/encephalopathy, hypothermia and lactic acidosis. Sepsis work-up negative. Hemoglobin A1c 4.8 with history of diabetes. Patient advised to stop glipizide due to hypoglycemia and low A1c. Persistent nausea and vomiting likely from exacerbation of chronic gastroparesis. ESRD on hemodialysis with euvolemia Core Measure Documentation - Palliative Care Palliative Care/ Comfort Measures: Not Applicable - Core Measures Any of the following diagnoses?: none Exam - Constitutional Vitals: Temp Pulse Resp BP Pulse Ox 97.9 F 82 18 139/66 97 06/15/21 16:03 06/15/21 16:03 06/15/21 16:03 06/15/21 16:03 06/15/21 16:03 General appearance: Present: no acute distress - EENT Eyes: Present: PERRL, EOM intact ENT: clear oral mucosa - Neck Neck: Present: supple - Respiratory Respiratory effort: normal Respiratory: bilateral: CTA - Cardiovascular Rhythm: regular - Extremities Extremities: No edema - Abdominal General gastrointestinal: Present: soft, non-tender, non-distended, normal bowel sounds - Integumentary Integumentary: Absent: rash - Musculoskeletal Musculoskeletal: strength equal bilaterally - Neurologic Neurologic: moves all extremities, other (Alert and oriented) Plan Diet: diabetic, renal Special Instructions: restrict fluid intake to (1200 mL) Additional Instructions: Stop taking glipizide since since blood glucose is low and A1c 4.8. Check blood sugar before each meal daily. See your family doctor in 1 week for follow-up on blood glucose and gastroparesis. Continue Reglan for gastroparesis Follow up with: DONNA MANUEL MD [Primary Care Provider] - 3-5 Days
[2021-06-15 21:17] VITALS: BP 146/73
== END 2021-06-15 21:55 | disposition home or self-care (01) | DRG 91 ==
LOC: ED 21:47 → CC1 06-13 02:09 → 4A 06-13 12:34
PROVIDERS: ADMIT Internal Medicine Geriatric Medicine; ATTEND Internal Medicine
PROC: 5A1D70Z Performance of Urinary Filtration, Intermittent, Less than 6 Hours Per Day (ICD-10-PCS; principal; 2021-06-14)
DX: G92.8 Other toxic encephalopathy (principal); N18.6 End stage renal disease; I12.0 Hypertensive chronic kidney disease with stage 5 chronic kidney disease or end stage renal disease; E87.1 Hypo-osmolality and hyponatremia; D63.1 Anemia in chronic kidney disease; Z86.718 Personal history of other venous thrombosis and embolism; Z90.49 Acquired absence of other specified parts of digestive tract; E11.22 Type 2 diabetes mellitus with diabetic chronic kidney disease; E11.43 Type 2 diabetes mellitus with diabetic autonomic (poly)neuropathy; K31.84 Gastroparesis
CPT/HCPCS: 36415; 70450; 71045; 80048; 80074; 80076; 82140; 82310; 82805; 82962; 83036; 83690; 83735; 84100; 84145; 84443; 85025; 86140; 87040; 93005; 93010; G0378; J3490; Q0162; J0692; J0885; J1644; J2270; J2405; J2765; J3370; J7030; J7040